=== PATIENT | female | born 1935 | race Caucasian/White ===

== ENCOUNTER 2021-08-22 09:21 | Observation (INO) ==
--- NOTE | 2021-08-03 09:43 | History & Physical Report ---
Date of Service August 03, 2021 date of surgery: 08/22/21 Procedure: Right Total Knee Arthroplasty Surgeon: Zac Mendes Assessment & Plan (1) Arthritis of right knee: Plan: Risks and benefits of procedure discussed in detail today, patient would like to proceed with a Right total knee replacement at [facility] as scheduled. will obtain medical clearance prior to surgery as well as obtain PATs at [facility]. Will place on ASA 81mg po bid x 1 month post op, f/u 2 weeks post op for routine post-operative care and x-ray, sooner if having any problems. patient will need rehab stay vs SNF after her surgery as discussed, will discuss with CM. At this point in time, has failed conservative measures and would like to proceed with surgical intervention. Her xrays show worsening DJD of her right knee, she has failed cortisone and visco injections. She will need patient matched TKA due to troch nail in her right femur. She underwent troch nail fixation in [facility], was d/c to [facility] in [place] for her therapy, recommend she continue PT of her hip and knee prior to her TKA The risks and benefits have been discussed including, but not limited to, risk of infection, nerve injury, stiffness, loss of motion, failure to improve, etc. Reasonable outcomes and options of treatment were discussed. An explanation of appropriate alternatives to the procedure that may be advantageous were discussed and their risks and benefits, as well as the risks and benefits of not proceeding with treatment. I offered to answer any additional inquiries concerning the treatment involved. All the patient's questions were answered. The patient is agreeable, understanding of the treatment plan and alternatives, and wishes to proceed with the treatment plan. History of Present Illness Chief Complaint: right knee pain Primary Care Provider: Akosua Blum Amy is an 85 year old female who complains of right knee pain, presents for pre-op evaluation prior to a right total knee replacement. she complains of pain, decreased range of motion, instability and stiffness in her right knee. Currently the patient states that the symptoms are moderate-severe and rated at 6/10. her pain is described as aching, sharp and throbbing. The symptoms are aggravated by ascending stairs, daily activities, first steps while awake walking. Prior NSAIDs include Mobic and IBU. she has been treated with previous cortisone and visco injections in the past without much relief. Allergies Allergy/AdvReac Type Severity Reaction Status Date / Time No Known Allergies Allergy Verified 02/19/21 08:02 Home Medications Medication Instructions Recorded Confirmed Type acetaminophen 325 mg tablet 650 mg PO BID 02/19/21 02/19/21 History (Tylenol) aspirin 325 mg tablet 325 mg PO QAM 02/19/21 02/19/21 History ferrous sulfate 325 mg (65 mg 325 mg PO QAM 02/19/21 02/19/21 History iron) tablet (iron) folic acid 1 mg tablet 1 mg PO QAM 02/19/21 02/19/21 History glucosamine sulfate 500 mg tablet 500 mg PO BID 02/19/21 02/19/21 History (Glucosamine) insulin glargine 100 unit/mL (3 15 unit SUBCUT BID 02/19/21 02/19/21 History mL) subcutaneous pen (Basaglar KwikPen U-100 Insulin) levothyroxine 100 mcg tablet 100 mcg PO QAM 02/19/21 02/19/21 History meloxicam 15 mg tablet 15 mg PO QAM 02/19/21 02/19/21 History methotrexate sodium 2.5 mg tablet 15 mg PO WK 02/19/21 02/19/21 History multivitamin 1 tab PO QAM 02/19/21 02/19/21 History omega-3 fatty acids-fish oil 684 1 cap PO QAM 02/19/21 02/19/21 History mg-1,200 mg capsule,delayed release propranolol 20 mg tablet 20 mg PO BID 02/19/21 02/19/21 History ramipril 10 mg tablet 10 mg PO QAM 02/19/21 02/19/21 History semaglutide (Ozempic) mg SUBCUT WK 02/19/21 History simvastatin 40 mg tablet 40 mg PO HS 02/19/21 02/19/21 History Past Med/Surg History Medical History Diabetes mellitus, type 2 Well controlled, stable Hyperlipidemia Hypertension Well controlled, stable Hypothyroidism Iron deficiency Osteoarthritis Rheumatoid arthritis knees Surgical History History of bilateral tubal ligation History of cardiac cath several yrs ago> no stents History of carpal tunnel release right History of cataract surgery bilat History of section x3 History of colonoscopy History of hip surgery from fracture > right with pin History of tonsillectomy History of tooth extraction with implants S/P trigger finger release bilat Family History Grandmother (Paternal) Diabetes Father Diabetes Brother Throat cancer Social History Smoking Status: Never smoker Second Hand Exposure: No; Hx Alcohol Use: No Hx Substance Use: No Preferred Language: Iranian Communication Ability: Effective Fitness Professional Required: No Beliefs That Will Affect Care: None Current Living Situation: Personal Care Facility Current Living Situation Comment: [facility] in [place] > apartments Feels Safe at Home: Yes Assistive Devices: Cane and Glasses Review of Systems Review of Systems: All systems reviewed & are unremarkable except as noted in HPI & below Constitutional: no fever, no chills and no sweats Respiratory: no cough and no dyspnea Cardiovascular: no chest pain, no dyspnea and no orthopnea Gastrointestinal: no abdominal pain, no nausea and no vomiting Musculoskeletal: as per Subjective / HPI Physical Exam Physical Exam: HT: 5ft 3in WT: 78.9kg Constitutional: WD/WN, vitals as above no acute distress Respiratory: normal respiratory effort, lungs clear to auscultation no respiratory distress, no labored breathing and does not use accessory muscles Cardiovascular: RRR, no murmur, no edema Gastrointestinal (Abdomen): normal bowel sounds, soft, nontender, no hepatosplenomegaly Musculoskeletal: Knee: + knee abnormal to inspection (RIGHT KNEE- ), + effusion (+1 effusion), + surgical incision (well healed portals), + limited ROM of knee (ROM 0/3/110), + knee ROM with crepitation, + joint line tenderness (medial joint line) and + Rosalind's sign positive; no deformity, no skin erythema, no ecchymosis, no valgus laxity, no varus laxity, anterior drawer test negative, Mandi's sign negative and pivot shift test negative Results & Data Results & Data ([facility]) Diagnostic Findings Right Knee X-ray: Right knee series showing advanced degenerative changes to the right knee, narrowing of the medial compartment and patello-femoral joint with patellar spurring noted, findings showing joint space narrowing of the medial compartment and patello-femoral joint, osteophyte formation and subchondral sclerosis noted. overall varus alignment with slight tibial subluxation. no acute bony pathology noted.
--- NOTE | 2021-08-17 14:55 | Anesthesiology Consultation ---
Date of Service August 17, 2021 Assessment & Plan (1) Encounter for pre-operative examination: - awaiting updated pre-op labs. - check BSG am DOS. - medical clearance 08/08/2021: "...feeling well at this time...appetite is good...right knee surgery on 08/22/21...chronic conditions which are generally controlled...preoperative lab work recently. This was reviewed and returned with expected results. EKG and CXR and supporting MRI were done in February...as long as surgeon and anesthesiologist are in agreement, patient will be cleared for total right knee arthroplasty..." Outpatient joint assessment: due to age and co-morbidities, patient is NOT acceptable candidate for outpatient joint program. - COVID screening: Per risk assessment analyst on 08/17/2021: Travel screen negative, no known COVID-19 positive contacts or current COVID-19 related symptoms in past 2 weeks. Patient vaccinated. Surgeon arranging preop COVID testing, scheduled 08/20/2021. Awaiting results. Chart Review Chart Review: Pending: Refer to Additional Notes / Consult section and Patient NOT seen in Pre Admission Testing History Surgery Operation Date: 08/22/21 09:20 Proposed Procedures p Right Total Knee Arthroplasty - Zac Mendes DO Surgery re-scheduled since 02/26/2021 anesthesia review. Height/Weight Height: 5 ft 3 in Weight: 78.471 kg Allergies Allergy/AdvReac Type Severity Reaction Status Date / Time No Known Allergies Allergy Verified 08/17/21 08:36 Medications Home Medications Medication Instructions Recorded Confirmed Last Taken acetaminophen 325 mg tablet 650 mg PO BID 02/19/21 08/17/21 Unknown (Tylenol) aspirin 325 mg tablet 325 mg PO QAM 02/19/21 08/17/21 Unknown ferrous sulfate 325 mg (65 mg 325 mg PO QAM 02/19/21 08/17/21 Unknown iron) tablet (iron) folic acid 1 mg tablet 1 mg PO QAM 02/19/21 08/17/21 Unknown glucosamine sulfate 500 mg tablet 500 mg PO BID 02/19/21 08/17/21 Unknown (Glucosamine) levothyroxine 100 mcg tablet 100 mcg PO QAM 02/19/21 08/17/21 Unknown meloxicam 15 mg tablet 15 mg PO QAM 02/19/21 08/17/21 Unknown methotrexate sodium 2.5 mg tablet 15 mg PO WK 02/19/21 08/17/21 Unknown multivitamin 1 tab PO QAM 02/19/21 08/17/21 Unknown omega-3 fatty acids-fish oil 684 1 cap PO QAM 02/19/21 08/17/21 Unknown mg-1,200 mg capsule,delayed release propranolol 20 mg tablet 20 mg PO BID 02/19/21 08/17/21 Unknown ramipril 10 mg tablet 10 mg PO BID 02/19/21 08/17/21 Unknown semaglutide (Ozempic) 0.5 mg SUBCUT WK 02/19/21 08/17/21 Unknown simvastatin 40 mg tablet 40 mg PO HS 02/19/21 08/17/21 Unknown insulin glargine 100 unit/mL (3 15 unit SUBCUT BID 08/17/21 08/17/21 Unknown mL) subcutaneous pen (Lantus Solostar U-100 Insulin) Past Medical History Medical History Diabetes mellitus, type 2 Well controlled, stable Hyperlipidemia Hypertension Well controlled, stable Hypothyroidism Iron deficiency Osteoarthritis Rheumatoid arthritis knees Past Family History Family History Grandmother (Paternal) Diabetes Father Diabetes Brother Throat cancer Past Surgical History Surgical History History of bilateral tubal ligation History of cardiac cath several yrs ago> no stents History of carpal tunnel release right History of cataract surgery bilat History of section x3 History of colonoscopy History of hip surgery from fracture > right FEMUR with ISMAEL-11/2020 History of tonsillectomy History of tooth extraction with implants S/P trigger finger release bilat Social History Smoking Status: Never smoker Do You Dip or Chew Tobacco: No Hx Alcohol Use: No Hx Substance Use: No substance use type: does not use Testing Electrocardiogram Date: 02/26/21 Normal sinus rhythm, rate [address] abnormality Non-specific RV conduction delay Abnormal ECG No previous ECGs available Confirmed by Akshat Edwards. Chest X-Ray Date: 02/26/21 FINDINGS: Moderate enlargement of the cardiac silhouette with mitral annular calcifications. Calcified plaque of the thoracic aorta. No pneumothorax, pleural effusion, airspace consolidation or overt pulmonary edema. Degenerative changes of the shoulders and spine with mild sigmoidal thoracolumbar scoliosis. Other Testing C spine x-ray FINDINGS: No fractures or subluxations are identified. Degenerative changes including disc space narrowing, endplate sclerosis, and osteophyte formation are most prominent at C5-C6. The alignment is anatomic Prevertebral soft tissues are within normal limits. IMPRESSION: No evidence for acute fracture or subluxation.
[~2021-08-22 09:21] MED LIST: ACETAMINOPHEN 500 MG TAB PO SCH; BUPIVACAINE 0.25% 30 ML VIAL ONE; BUPIVACAINE 0.5 % 5 MG/1 ML PF 10ML VIAL ONE; CeleBREX 200 MG CAP PO SCH; DEXAMETHASONE SOD INJ 4 MG/ML VIAL ONE; EPINEPHrine INJ 1 MG/ML AMP ONE; FAMOTIDINE 20 MG TAB PO SCH; GABAPENTIN 300 MG CAP PO SCH; LR 500ML BOLUS, THEN 15ML/HR IV SCH; METOCLOPRAMIDE HCL 10 MG TABLET PO SCH; ROPIVACAINE 0.5% HCL/PF 150 MG, BUPIVACAINE 0.75% MPF 20 ML, EPINEPHrine 30MG/30ML (OR ... INSTIL SCH; TRANEXAMIC ACID 1,000 MG **IV Intra-op IV SCH; TRANEXAMIC ACID 1,000 MG **IV Pre-op IV SCH; ceFAZolin 2000MG 2,000 MG/15 ML SYR IV SCH; dexAMETHasone 4 MG TAB PO SCH; oxyCODONE HCL 10 MG TABCR (OxyCONTIN) PO SCH
[2021-08-22] MEDS ORDERED: MIDAZOLAM HCL 1 MG/ML 2ML VIAL ONE (10:04)
[2021-08-22] MEDS ORDERED: DEXTROSE 5% 500 ML IV SCH (10:30)
--- NOTE | 2021-08-22 10:51 | History & Physical Bridge Note ---
Date of Service August 22, 2021 History & Physical Bridge Note I have examined the patient, reviewed the History & Physical and in the interval since the performance of the History & Physical I have noted the following changes of clinical significance: no changes noted
[2021-08-22] MEDS ORDERED: PROMETHAZINE HCL 6.25 MG in SODIUM CHLORIDE 0.9% 50 ML IV PRN (10:55)
[2021-08-22] MEDS ORDERED: fentaNYL citrate 100 MCG/2 ML VIAL IV PRN (10:55)
[2021-08-22] MEDS ORDERED: ONDANSETRON INJ 2 MG/ML 2 ML VIAL IV PRN ×2 (10:55→15:59)
[2021-08-22] MEDS ORDERED: ATROPINE SULFATE 0.1 MG/ML 10ML SYR IV PRN (10:55)
[2021-08-22] MEDS ORDERED: ePHEDrine sulfate 50 MG/ML AMP IV PRN (10:55)
[2021-08-22] MEDS ORDERED: ORTHO JOINT ANESTHETIC ONE (11:24)
[2021-08-22] MEDS ORDERED: PROPOFOL IV EMULSION 10 MG/ML 20 ML VIAL IV ONE (12:32)
[2021-08-22] MEDS ORDERED: LIDOCAINE 2% 2 ML VIAL/AMP(20MG/ML) INFIL ONE (12:32)
[2021-08-22] MEDS ORDERED: ePHEDrine sulfate 50 MG/ML SYR ONE (13:02)
--- NOTE | 2021-08-22 13:25 | Operative Report ---
Post Operative Report Pre & Post Diagnosis Operation Date: 08/22/21 11:40 Pre-Op Diagnosis: Arthritis of right knee Post-Op Diagnosis: Arthritis of right knee I identified the patient and participated in the time-out.: Yes Procedure Operation Date: 08/22/21 11:40 Actual Procedures p Right Total Knee Arthroplasty(Right) utilizing [employer] persona 9 narrow posterior stabilized tibia D with a 14 x 30 stem polytwelve posterior constrained patella 31 oval Zac Mendes DO Surgeon Zac Mendes DO Jail Officer Fermin [place] Estimated Blood Loss 10 Findings Consistent with Post-Op Diagnosis Patient presents with ongoing severe DJD varus alignment 10 degree flexion contracture eburnated [id number] marginal osteophyte subchondral sclerosis with cystic changes with moderate to large effusion Specimens Bone and cartilage Drains Medium bore Hemovac Anesthesia Type MAC Spinal Regional Complications none Disposition Accompanied Patient To Recovery: No Disposition: Recovery Room Indications Patient presents with DJD as noted above failed attempted conservative management daily corticosteroid injection Visco supplementation relative rest activity modification the above intraoperative findings were noted Description of Procedure After proper prepping and draping of the Right lower extremity anterior midline incision was made over the region of the extensor extensor mechanism after meticulous hemostasis was obtained and maintained in subcutaneous tissues a medial parapatellar incision was made The patella was subluxed lateralward the medial lateral gutter were cleaned from any hypertrophic synovitis and scar tissue of the distal femoral block was placed and the distal femoral osteotomy cut was made subsequently the chamfers anterior and posterior osteotomy cuts were made utilizing the 4-in-1 block the tibia was subsequently subluxed anteriorward medial and ateral meniscal remnants were excised in their entirety remnants of the anterior and posterior cruciate ligaments were excised in their entirety excellent exposure of the proximal tibia was obtained the tibial osteotomy guide was placed on the proximal tibial osteotomy cut was made once again the knee was irrigated with copious amounts of sterile saline solution the patella was subsequently everted lateralward thickened scar tissue around the patella was removed the patella was subsequently cut utilizing a freehand technique and was drilled prepared for final preparation and placement of patella socially flexion-extension gaps were checked and the equal and symmetric trials were placed to the appropriate femoral and tibial trials with poly-spacer being placed for equal flexion and extension gaps and full range of motion including extension to 0 and flexion to 140 the trial components after having been taken to recovery range of motion was subsequently removed meticulous hemostasis was obtained and maintained subsequently a knee block injection of joint cocktail including ropivacaine 0.5% 150 mg. Bupivacaine 0.5% epinephrine 1-200,030 mL's toradol 30 mg dexamethasone 4 mg ketamine 10 mg clonidine 100 micrograms normal saline solution 30 mg was infiltrated into the soft tissues of the posterior knee medial lateral gutters and periosteal synovium special attention was paid to protect neurovascular structures at all times subsequently trial components having been removed the knee was irrigated with sterile saline solution. debris was removed the proximal tibia was subsequently prepared and was made ready for the placement of the tibial component tibial component was also cemented and tamped into position the femoral component was subsequently placed and cemented in the position the patellar component was subsequently cemented in position because hemostasis once again obtained and maintained wound having been thoroughly irrigated with debridement and debridement lavage was performed as well as a medial parapatellar incision closed with #1 Vicryl in interrupted fashion subcutaneous was closed with #2 Vicryl skin was closed with skin clips. PA-C was necessary for prepping and drapping as well as wound closure of deep fascia Sub cutaneous tissue and skin and was necessary for the case. A sterile compressive dressing was placed patient was taken to recovery in stable condition of report dictated by Vaughn I attest to the content of the Intraoperative Record and any orders documented therein. Any exceptions are noted below.Due to the complex nature of the procedure, the entire surgery was performed with the operational assistance of MARISA Dias The university administrative assistant, under direct supervision, was involved in the actual performance of all aspects of the surgical procedure including hemostasis, tissue retraction and incision, instrument management, patient positioning, and wound closure. I attest to the content of the Intraoperative Record and any orders documented therein. Any exceptions are noted below.
--- NOTE | 2021-08-22 14:28 | Anesthesiology Progress Note ---
Date of Service August 22, 2021 Anesthesia Post Procedure Vital Signs Vital Signs: Temp Pulse Pulse Resp BP BP Pulse Ox 08/22/21 14:20 70 16 130/62 98 08/22/21 14:10 66 12 137/62 100 08/22/21 14:00 68 14 114/76 100 08/22/21 13:51 37.1 C 66 14 103/60 100 08/22/21 10:07 36.6 C 62 20 184/87 H 100 Transfer of Care Handoff Completed per policy Notes Mental Status: alert / awake / arousable Patient Amnestic to Procedure: Yes Nausea / Vomiting: adequately controlled Pain: adequately controlled Airway Patency, RR, SpO2: stable & adequate BP & HR: stable & adequate Hydration State: stable & adequate Neuraxial Anesthesia: was administered and sensory block is resolving Anesthetic Complications: no major complications apparent and Pt Satisfied with anesthetic care
--- NOTE | 2021-08-22 14:33 | XRay Report ---
RIGHT KNEE 2 VIEWS History: Right total knee arthroplasty. Degenerative arthritis. Postop. FINDINGS: The patient is status post a right total knee arthroplasty. The hardware is intact. No frac ture or dislocation. Surgical drains are in place. IMPRESSION: Right total knee arthroplasty. No evidence for hardware complication. ACT 112: Negative or not required by law. Electronically signed by: Davy Higuera M.D. 08/22/2021 2:30 PM
[2021-08-22] MEDS ORDERED: HYDROmorphone INJ 1 MG/ML SYRINGE IV PRN (15:59)
[2021-08-22] MEDS ORDERED: bisacodyL 10 MG SUPP PR PRN (15:59)
[2021-08-22] MEDS ORDERED: METOCLOPRAMIDE HCL INJ 5 MG/ML 2 ML VIAL IV PRN (15:59)
[2021-08-22] MEDS ORDERED: PHARMACY GLYCEMIC MGMT CONSULT PRN (15:59)
[2021-08-22] MEDS ORDERED: NALOXONE HCL 0.4 MG/1 ML VIAL/CARP IV PRN (15:59)
[2021-08-22] MEDS ORDERED: oxyCODONE HCL IR 5 MG TAB (IMMEDIATE RELEASE) PO PRN (15:59)
[2021-08-22] MEDS ORDERED: MAGNESIUM HYDROXIDE SUSP 30 ML UDC PO PRN (15:59)
[2021-08-22] MEDS ORDERED: diphenhydrAMINE Capsule 25 MG CAP PO PRN (15:59)
[2021-08-22] MEDS: SODIUM CHLORIDE 0.9% 1000ML 1,000 ML IV SCH (16:20)
[2021-08-22] MEDS: ACETAMINOPHEN 500 MG TAB PO SCH (17:03)
[2021-08-22] MEDS: INSULIN ASPART PER UNIT SC SCH ×2 (17:42→21:25)
[2021-08-22] MEDS: ceFAZolin 2000MG 2,000 MG/15 ML SYR IV SCH (19:51)
[2021-08-22] MEDS: PROPRANOLOL HCL 20 MG TAB PO SCH (19:51)
[2021-08-22] MEDS: DOCUSATE SODIUM 100 MG CAP PO SCH (19:51)
[2021-08-22] MEDS: ASPIRIN 81 MG ECTAB PO SCH (20:10)
[2021-08-22] MEDS ORDERED: INSULIN GLARGINE SOLOSTAR 100 UNITS/ML 3 ML PEN SQ ONE (20:15)
[2021-08-22] MEDS ORDERED: SENNA 8.6 MG TAB PO SCH (21:00)
[2021-08-22] MEDS ORDERED: SIMVASTATIN 40 MG TAB PO SCH (21:00)
[2021-08-22] MEDS ORDERED: INSULIN GLARGINE SOLOSTAR 100 UNITS/ML 3 ML PEN SQ SCH (21:00)
[2021-08-23] MEDS: INSULIN ASPART PER UNIT SC SCH ×4 (00:09→12:30)
[2021-08-23] MEDS: ACETAMINOPHEN 500 MG TAB PO SCH ×2 (00:11→09:04)
[2021-08-23] MEDS: SODIUM CHLORIDE 0.9% 1000ML 1,000 ML IV SCH (03:00)
[2021-08-23] MEDS: ceFAZolin 2000MG 2,000 MG/15 ML SYR IV SCH (03:33)
[2021-08-23 06:15] LABS: Calcium 8.6 mg/dl (8.5-10.1); Creatinine Clr Calc Pharmacy 52.8 ml/min; Est GFR (Non-African American) 68.2 ml/min; Hematocrit (blood only) 31.1 % (37-47); Hemoglobin 10.1 g/dL (12.0-16.0); Mean Corpuscular Hemoglobin 27.4 pg (25-34); Mean Corpuscular Hgb Conc 32.5 g/dL (32-36); Mean Corpuscular Volume 84.5 fL (80-100); Platelet Count 264 K/uL (130-400); Potassium 4.2 mmol/L (3.5-5.1); RDW Coefficient of Variation 13.5 % (11.5-14.5); RDW Standard Deviation 41.2 fL (36.4-46.3); Red Blood Count 3.68 M/uL (4.2-5.4)
[2021-08-23] MEDS ORDERED: LEVOTHYROXINE SODIUM 100 MCG TABLET PO SCH (06:30)
--- NOTE | 2021-08-23 06:37 | Hospitalist Consultation ---
Date of Consultation August 23, 2021 History of Present Illness Attending Physician: Zac Mendes DO Allergies Allergy/AdvReac Type Severity Reaction Status Date / Time No Known Allergies Allergy Verified 08/22/21 10:12 Home Medications Medication Instructions Recorded Confirmed Type acetaminophen 325 mg tablet 650 mg PO BID 02/19/21 08/22/21 History (Tylenol) aspirin 325 mg tablet 325 mg PO QAM 02/19/21 08/22/21 History ferrous sulfate 325 mg (65 mg 325 mg PO QAM 02/19/21 08/22/21 History iron) tablet (iron) folic acid 1 mg tablet 1 mg PO QAM 02/19/21 08/22/21 History glucosamine sulfate 500 mg tablet 500 mg PO BID 02/19/21 08/22/21 History (Glucosamine) levothyroxine 100 mcg tablet 100 mcg PO QAM 02/19/21 08/22/21 History meloxicam 15 mg tablet 15 mg PO QAM 02/19/21 08/22/21 History methotrexate sodium 2.5 mg tablet 15 mg PO WK 02/19/21 08/22/21 History multivitamin 1 tab PO QAM 02/19/21 08/22/21 History omega-3 fatty acids-fish oil 684 1 cap PO QAM 02/19/21 08/22/21 History mg-1,200 mg capsule,delayed release propranolol 20 mg tablet 20 mg PO BID 02/19/21 08/22/21 History ramipril 10 mg tablet 10 mg PO BID 02/19/21 08/22/21 History semaglutide (Ozempic) 0.5 mg SUBCUT WK 02/19/21 08/22/21 History simvastatin 40 mg tablet 40 mg PO HS 02/19/21 08/22/21 History insulin glargine 100 unit/mL (3 15 unit SUBCUT BID 08/17/21 08/22/21 History mL) subcutaneous pen (Lantus Solostar U-100 Insulin) Patient History Medical History Diabetes mellitus, type 2 Well controlled, stable Hyperlipidemia Hypertension Well controlled, stable Hypothyroidism Iron deficiency Osteoarthritis Rheumatoid arthritis knees Surgical History History of bilateral tubal ligation History of cardiac cath several yrs ago> no stents History of carpal tunnel release right History of cataract surgery bilat History of section x3 History of colonoscopy History of hip surgery from fracture > right FEMUR with ISMAEL-11/2020 History of tonsillectomy History of tooth extraction with implants S/P trigger finger release bilat Family History Grandmother (Paternal) Diabetes Father Diabetes Brother Throat cancer Social History Smoking Status: Never smoker Second Hand Exposure: No; Do You Dip or Chew Tobacco: No; Hx Alcohol Use: No Hx Substance Use: No Preferred Language: Andorran Communication Ability: Effective Senior Application Software Engineer Required: No Beliefs That Will Affect Care: None Current Living Situation: Alone Current Living Situation Comment: [facility]arate in [place] > apartments current occupational status: retired Other Information That Helps Us Care for You: No Feels Safe at Home: Yes Safety Concerns: Feels Safe At This Time Assistive Devices: Walker Assistive Devices Comment: IMPLANTS Results & Data Results & Data ([facility]) Vital Signs (Past 12 Hours) Vital Signs Temp Pulse Resp BP Pulse Ox 08/23/21 03:32 36.5 C 66 14 157/72 H 96 08/23/21 00:04 36.4 C L 71 17 144/72 H 95 08/22/21 19:10 36.5 C 80 17 144/67 H 98 PG Care Time/CCT Total # of Minutes Spent Total Time Spent with Patient: Total time spent is greater than 50% in coordination of care (as documented) at patient's floor/unit and/or counseling patient: Coding
[2021-08-23] MEDS: ASPIRIN 81 MG ECTAB PO SCH (08:32)
[2021-08-23] MEDS ORDERED: MULTIVITAMIN TAB PO SCH (09:00)
[2021-08-23] MEDS ORDERED: INSULIN GLARGINE SOLOSTAR 100 UNITS/ML 3 ML PEN SQ SCH ×2 (09:00→21:00)
[2021-08-23] MEDS ORDERED: FOLIC ACID 1 MG TAB PO SCH (09:00)
[2021-08-23] MEDS ORDERED: FERROUS SULFATE 325 MG TAB PO SCH (09:00)
[2021-08-23] MEDS ORDERED: ENALAPRIL MALEATE 10 MG TAB PO SCH (09:00)
[2021-08-23] MEDS: DOCUSATE SODIUM 100 MG CAP PO SCH (09:04)
[2021-08-23] MEDS: PROPRANOLOL HCL 20 MG TAB PO SCH (09:04)
--- NOTE | 2021-08-23 09:21 | Orthopedic Progress Note ---
Date of Service August 23, 2021 Assessment & Plan (1) Arthritis of right knee: Plan: POD 1 PT/OT protocols. Weightbearing as tolerated. DVT prophylaxis-ASA p.o. twice daily, SCDs, HOLGER montilla. Pain management as written. DC planning-patient is planning to return to [facility]. Admission and Anticipated Discharge Date Admission Date: August 22, 2021 Subjective POD 1 Patient is sitting up in bed awake and alert. No complaints. Pain is controlled. Denies shortness of breath, chest pain, lightheadedness. Physical Exam Physical Exam: Dressings are clean, dry, and intact. Calves are soft and nontender. Neurovascular is intact. Toes are mobile. Hemovac drainage was 175 mL this morning. Plan to recheck at 11 AM. Results & Data ([facility]) Vital Signs (Past 12 Hours) Vital Signs Temp Pulse Resp BP Pulse Ox 08/23/21 07:08 36.6 C 68 16 155/72 H 97 08/23/21 03:32 36.5 C 66 14 157/72 H 96 08/23/21 00:04 36.4 C L 71 17 144/72 H 95 Laboratory Results Laboratory Results WBC 12.70 K/uL (4.8-10.8) H 08/23/21 05:30 RBC 3.68 M/uL (4.2-5.4) L 08/23/21 05:30 Hgb 10.1 g/dL (12.0-16.0) L 08/23/21 05:30 Hct 31.1 % (37-47) L 08/23/21 05:30 MCV 84.5 fL (80-100) 08/23/21 05:30 MCH 27.4 pg (25-34) 08/23/21 05:30 MCHC 32.5 g/dL (32-36) 08/23/21 05:30 RDW Std Deviation 41.2 fL (36.4-46.3) 08/23/21 05:30 RDW Coeff of Pari 13.5 % (11.5-14.5) 08/23/21 05:30 Plt Count 264 K/uL (130-400) 08/23/21 05:30 MPV 10.0 fL (7.4-10.4) 08/23/21 05:30 Sodium 131 mmol/L (136-145) L 08/23/21 05:30 Potassium 4.2 mmol/L (3.5-5.1) 08/23/21 05:30 Chloride 101 mmol/L (98-107) 08/23/21 05:30 Carbon Dioxide 25 mmol/L (21-32) 08/23/21 05:30 Anion Gap 5 (3-11) 08/23/21 05:30 BUN 20 mg/dl (6-23) 08/23/21 05:30 Creatinine 0.80 mg/dl (0.6-1.2) 08/23/21 05:30 Est Cr Clr Drug Dosing 52.8 ml/min 08/23/21 05:30 Est GFR ( Amer) 79.0 ml/min 08/23/21 05:30 Est GFR (Non-Af Amer) 68.2 ml/min 08/23/21 05:30 BUN/Creatinine Ratio 25.0 (10-20) H 08/23/21 05:30 Glucose 133 mg/dl (70-99(Fasting)) H 08/23/21 05:30 POC Glucose 133 mg/dl (70-99) H 08/23/21 08:01 Calcium 8.6 mg/dl (8.5-10.1) 08/23/21 05:30 SARS-CoV-2, RNA, NAAT NEGATIVE (NEGATIVE) 08/22/21 Unknown Blood Type O Positive 08/22/21 10:13 Antibody Screen NEGATIVE 08/22/21 10:13 Impressions Knee X-Ray 08/22/21 13:57 RIGHT KNEE 2 VIEWS History: Right total knee arthroplasty. Degenerative arthritis. Postop. FINDINGS: The patient is status post a right total knee arthroplasty. The hardware is intact. No fracture or dislocation. Surgical drains are in place. IMPRESSION: Right total knee arthroplasty. No evidence for hardware complication. ACT 112: Negative or not required by law. Electronically signed by: Davy Higuera M.D. 08/22/2021 2:30 PM
--- NOTE | 2021-08-23 13:20 | Pharmacy Report ---
Pharmacy Glycemic Short Note 2 - Date of Service August 23, 2021 - Glycemic Short BSG Results (Last 24 hours): 08/22/21 08/22/21 08/22/21 13:55 17:31 20:54 Glucose POC Glucose 85 163 H 363 H* 08/22/21 08/23/21 08/23/21 20:55 00:00 03:37 Glucose POC Glucose 350 H* 262 H 169 H 08/23/21 08/23/21 08/23/21 05:30 08:01 12:00 Glucose 133 H POC Glucose 133 H 220 H OUTPATIENT ANTIDIABETIC REGIMEN: * Lantus 15 units BID * Ozempic ASSESSMENT: * Ms Bernstein is an 85 y/o F with a PMH of T2DM on insulin who presents for knee replacement. * Patient received D5 prior to OR due to hypoglycemia. * Patient received 8 mg of PO dexamethasone prior to surgery and 4 mg of IV dexamethasone during surgery. * BSG afterwards was 85 mg/dL. * POC BSG was 363 after dinner due to no carbohydrate coverage. * Patient received 20 units of Lantus + weight-based stress of 3 Novolog. * Received 9 extra units of insulin overnight for BSGs of 262-169 mg/dL. Fasting today was 133 mg/dL. * Started with Lantus 15 units this morning (patient's home dose due to steroids) then will start a 10% reduced dose of 12 units BID since patient inpatient. * Novolog weight-based stress of 3 for now. PLAN FOR INPATIENT GLYCEMIC CONTROL: * Basal insulin * Lantus 15 units SQ x 1 then 12 units SQ BID * Bolus insulin * NovoLog per scale ACHS or Q6hrs while NPO * Goal Range: Low 110 mg/dL - High 140 mg/dL * Correction Factor: 20 mg/dL/unit * Nutritional / Prandial insulin per carb ratio of 1 unit per 6 grams CHO consumed
--- NOTE | 2021-08-24 12:21 | Discharge Summary ---
Date of Service date of surgery: 08/22/21 date of discharge: 08/23/21 Admission HPI Per Admitting Provider Amy is an 85 year old female who complains of right knee pain, presents for pre-op evaluation prior to a right total knee replacement. she complains of pain, decreased range of motion, instability and stiffness in her right knee. Currently the patient states that the symptoms are moderate-severe and rated at 6/10. her pain is described as aching, sharp and throbbing. The symptoms are aggravated by ascending stairs, daily activities, first steps while awake walking. Prior NSAIDs include Mobic and IBU. she has been treated with previous cortisone and visco injections in the past without much relief. Principal Diagnosis right knee arthritis Discharge Exam Musculoskeletal NVDI, calf SNT, negative will sign. DP palpable, able to wiggle toes/ankle movement without difficulty. dressing clean dry and intact. expected post- operative bruising noted. Discharge Data Allergies Allergy/AdvReac Type Severity Reaction Status Date / Time No Known Allergies Allergy Verified 08/22/21 10:12 Procedures Performed Operation Date: 08/22/21 11:40 Actual Procedures p Right Total Knee Arthroplasty(Right) - Zac Mendes DO Ordered Studies 08/22/21 05:00 US - OR guided needle placemen Routine Hospital Course (1) Arthritis of right knee: POD 1 PT/OT protocols. Weightbearing as tolerated. DVT prophylaxis-ASA p.o. twice daily, SCDs, HOLGER montilla. Pain management as written. DC planning-patient is planning to return to [facility]. Total Time Total Time Spent Total Time Spent (In Minutes): 20 Discharge Plan Discharge Items Patient Disposition: Home - Self-Care Reason For Visit: Right Knee Osteoarthritis Discharge Diagnosis: Right total knee replacement Activity: Per Instructions section Lifting: Wait until after follow-up appointment Weightbearing Comment: WBAT with walker Non-emergency contact: Surgeon Call non-emergency contact if: you have any medication questions, your pain is not controlled, your pain is worsening, your temperature is above 101, your wound has increased redness, your wound has increased drainage and your wound pain has increased Follow-up/Referrals: Akosua Blum D.O. [Primary Care Provider] - Diet: Regular Addtl Attending Provider Instructions: ACTIVITY RECOMMENDATIONS: SELF CARE INSTRUCTIONS AFTER TOTAL KNEE REPLACEMENT A. You may need to continue a physical therapy program after discharge from the hospital. There are several options available to you. Your doctor will assist you in selecting the best one for you. 1. An out-patient facility 2 to 3 times a week for therapy or home therapy. 2. Continue working on all exercises taught to you in the hospital. Your goals should be to increase bending of your knee to 90 degrees and beyond and to fully straighten your knee. B. You may progress at your own pace from walking with a walker or crutches to a cane; then to no assistive devices. C. Make walking a part of your daily routine. Be up as much as comfortable with rest periods throughout the day. Rest with leg elevation is very important. Use the ice wrap frequently for the first 3-4 weeks. D. There are no restrictions on activities. You may ride in a car, shop, participate in automotive general manager and all social activities. E. Wear the long elastic stockings (HOLGER hose) 20 hours a day for 2 weeks after surgery. They can be removed several times a day for laundering and for a bath. F. You may shower, no tub baths until cleared by your doctor. SPECIAL CARE INSTRUCTIONS: VERY IMPORTANT TO READ AND REVIEW A. There are a few signs you need to watch for after you are home. Call [facility] [place] if you notice any of the followin. Increased severe knee pain. Some pain is expected especially when you exercise. 2. Increased swelling in your leg or knee; pain or swelling of the calf muscle in either lower leg. 3. Any fluid drainage from the incision. 4. Shortness of breath or chest pain. B. Please call [facility] [place] [facility] at if you have any concerns or questions about your operation or recovery. The doctor or his nurse will return your call promptly. C. You must take antibiotics before dental work, bladder, bowel or other surgery. Your doctor will provide you with a permanent care to carry describing this precaution. IMPORTANT: * REMEMBER TO TAKE ASPIRIN, 81 MG, TWICE DAILY FOR 4 WEEKS UNLESS OTHERWISE DIRECTED. THIS IS YOUR BLOOD THINNER. * HIGH RISK PATIENTS MAY BE PRESCRIBED A STRONGER BLOOD THINNER. THIS WILL BE PROVIDED AT DISCHARGE. * CALL IF INCREASED PAIN, REDNESS, DRAINAGE OR FEVER GREATER THAT 101. * You may restart your Methotrexate 2 weeks post operatively. * WEAR HOLGER HOSE 20 HOURS PER DAY FOR 2 WEEKS. * DERMABOND Prineo- This is a mesh tape dressing that is covered with glue. It should remain in place until the incision is properly healed, usually 10-14 days. This dressing is designed to naturally slough off. You may trim the excess mesh tape as it peels off. Incision may be briefly wet in a shower. Dry immediately by blotting with a clean, dry towel. Do not bath or swim until instructed by your doctor. Do not scratch, rub, or pick at the dressing. Do not apply any topical ointments or lotions until dressing is completely removed and/or instructed by your doctor. There may be a small piece of suture material at one end of your incision. Do not pull or trim this. If it is bothersome or catching on clothing, you may cover it with a band-aid. IF INCISION IS LEAKING THROUGH DRESSING, CALL THE OFFICE . FOLLOW UP VISIT: If appointment is not already scheduled: Please call [facility] [place] to make a follow-up appointment for 2 weeks after your surgery at . Pending Studies at Discharge: No Stand-Alone Forms: My [facility] [employer] Smoking Cessation Medications and DC Order Prescriptions: New aspirin 81 mg Tablet,Delayed Release (Dr/Ec) 81 mg PO BID Qty: 60 RF: 0 acetaminophen [Tylenol Extra Strength] 500 mg Tablet 1,000 mg PO Q8H Qty: 60 RF: 0 oxycodone 5 mg Tablet 5 - 10 mg PO .Q4h-6h MDD 6 PRN (Reason: pain) Qty: 30 RF: 0 Continued Lantus Solostar U-100 Insulin 100 unit/mL (3 mL) Insulin Pen 15 unit SUBCUT BID RF: 0 multivitamin Tablet 1 tab PO QAM RF: 0 glucosamine sulfate [Glucosamine] 500 mg Tablet 500 mg PO BID RF: 0 simvastatin 40 mg Tablet 40 mg PO HS RF: 0 levothyroxine 100 mcg Tablet 100 mcg PO QAM RF: 0 ferrous sulfate [iron] 325 mg (65 mg iron) Tablet 325 mg PO QAM RF: 0 folic acid 1 mg Tablet 1 mg PO QAM RF: 0 propranolol 20 mg Tablet 20 mg PO BID RF: 0 ramipril 10 mg Tablet 10 mg PO BID RF: 0 Ozempic 0.25 mg or 0.5 mg(2 mg/1.5 mL) Pen Injector 0.5 mg SUBCUT WK RF: 0 Discontinued acetaminophen [Tylenol] 325 mg Tablet 650 mg PO BID RF: 0 aspirin 325 mg Tablet 325 mg PO QAM RF: 0 meloxicam 15 mg Tablet 15 mg PO QAM RF: 0 methotrexate sodium 2.5 mg Tablet 15 mg PO WK RF: 0 [place] 3 Fish Oil 684-1,200 mg Capsule,Delayed Release(Dr/Ec) 1 cap PO QAM RF: 0 Discharge Orders: Discharge Order (Routine); Ordered 08/23/21 Ordered By: Lex Parada Admission Data Admit Date/Time: 08/22/21 13:57 Attending Provider: Zac Mendes Admit Provider: Zac Mendes Primary Care Provider: Akosua Blum Other Interventions: Discharge Summary Assessment (RN) Last Done: 08/23/21 13:18
== END 2021-08-23 15:04 | disposition home or self-care (01) ==
LOC: 3E 09:21 → ASU 09:21

== ENCOUNTER 2021-11-07 07:28 | Observation (INO) ==
--- NOTE | 2021-10-18 08:04 | History & Physical Report ---
Date of Service October 18, 2021 date of surgery: 11/07/21 Procedure: Left Total Knee Arthroplasty Surgeon: Zac Mendes Assessment & Plan (1) Arthritis of knee, left: Plan: Risks and benefits of procedure discussed in detail today, patient would like to proceed with a left total knee replacement at [facility] as scheduled. will obtain medical clearance prior to surgery as well as obtain PATs at [facility]. Will place on ASA 81mg po bid x 1 month post op, f/u 2 weeks post op for routine post-operative care and x-ray, sooner if having any problems. patient will need rehab stay vs SNF after her surgery as discussed, will discuss with CM. At this point in time, has failed conservative measures and would like to proceed with surgical intervention. she has failed cortisone and visco injections. The risks and benefits have been discussed including, but not limited to, risk of infection, nerve injury, stiffness, loss of motion, failure to improve, etc. Reasonable outcomes and options of treatment were discussed. An explanation of appropriate alternatives to the procedure that may be advantageous were discussed and their risks and benefits, as well as the risks and benefits of not proceeding with treatment. I offered to answer any additional inquiries concerning the treatment involved. All the patient's questions were answered. The patient is agreeable, understanding of the treatment plan and alternatives, and wishes to proceed with the treatment plan. History of Present Illness Chief Complaint: left knee pain Primary Care Provider: Akosua Rodriguez [place] Amy is an 86 year old female who complains of left knee pain, presents for pre-op evaluation prior to a left total knee replacement. she complains of pain, decreased range of motion and stiffness in her left knee. Currently the patient states that the symptoms are moderate-severe and rated at 7/10. her pain is described as aching, sharp and throbbing and are aggravated by ascending stairs, daily activities, first steps while awake walking. Prior NSAIDs include Mobic and IBU. she has been treated with previous cortisone and visco injections in the past without much relief. Allergies Allergy/AdvReac Type Severity Reaction Status Date / Time No Known Allergies Allergy Verified 08/22/21 10:12 Home Medications Medication Instructions Recorded Confirmed Type ferrous sulfate 325 mg (65 mg 325 mg PO QAM 02/19/21 08/22/21 History iron) tablet (iron) folic acid 1 mg tablet 1 mg PO QAM 02/19/21 08/22/21 History glucosamine sulfate 500 mg tablet 500 mg PO BID 02/19/21 08/22/21 History (Glucosamine) levothyroxine 100 mcg tablet 100 mcg PO QAM 02/19/21 08/22/21 History multivitamin 1 tab PO QAM 02/19/21 08/22/21 History propranolol 20 mg tablet 20 mg PO BID 02/19/21 08/22/21 History ramipril 10 mg tablet 10 mg PO BID 02/19/21 08/22/21 History semaglutide (Ozempic) 0.5 mg SUBCUT WK 02/19/21 08/22/21 History simvastatin 40 mg tablet 40 mg PO HS 02/19/21 08/22/21 History insulin glargine 100 unit/mL (3 15 unit SUBCUT BID 08/17/21 08/22/21 History mL) subcutaneous pen (Lantus Solostar U-100 Insulin) acetaminophen 500 mg tablet 1,000 mg PO Q8H #60 tab 08/23/21 Rx (Tylenol Extra Strength) aspirin 81 mg tablet,delayed 81 mg PO BID #60 tab 08/23/21 Rx release oxycodone 5 mg tablet 5 - 10 mg PO .Q4h-6h PRN #30 tab 08/23/21 Rx MDD 6 Past Med/Surg History Medical History (Updated 10/18/21 @ 08:07 by Fermin Cuellar PA-C) Diabetes mellitus, type 2 Well controlled, stable Hyperlipidemia Hypertension Well controlled, stable Hypothyroidism Iron deficiency Osteoarthritis Rheumatoid arthritis knees Surgical History (Updated 10/18/21 @ 08:07 by Fermin Cuellar PA-C) History of bilateral tubal ligation History of cardiac cath several yrs ago> no stents History of carpal tunnel release right History of cataract surgery bilat History of section x3 History of colonoscopy History of hip surgery from fracture > right FEMUR with ISMAEL-11/2020 History of tonsillectomy History of tooth extraction with implants History of total right knee replacement Right Total Knee Arthroplasty(Right) utilizing [employer] persona 9 narrow posterior stabilized tibia D with a 14 x 30 stem polytwelve posterior con strained patella 31 oval S/P trigger finger release bilat Family History Grandmother (Paternal) Diabetes Father Diabetes Brother Throat cancer Social History Smoking Status: Never smoker Second Hand Exposure: No; Hx Alcohol Use: No Hx Substance Use: No Preferred Language: Malagasy Communication Ability: Effective Hand Bulldozer Required: No Beliefs That Will Affect Care: None Current Living Situation: Alone Current Living Situation Comment: [facility] in [place] > apartments current occupational status: retired Feels Safe at Home: Yes Assistive Devices: Cane and Walker Review of Systems Review of Systems: All systems reviewed & are unremarkable except as noted in HPI & below Constitutional: no fever, no chills and no sweats Respiratory: no cough and no dyspnea Cardiovascular: no chest pain, no dyspnea and no orthopnea Gastrointestinal: no abdominal pain, no nausea and no vomiting Musculoskeletal: as per Subjective / HPI Physical Exam Physical Exam: HT: 5ft 3in WT: 78.9kg Constitutional: WD/WN, vitals as above no acute distress Respiratory: normal respiratory effort, lungs clear to auscultation no respiratory distress, no labored breathing and does not use accessory muscles Cardiovascular: RRR, no murmur, no edema Gastrointestinal (Abdomen): normal bowel sounds, soft, nontender, no hepatosplenomegaly Musculoskeletal: Knee: + knee abnormal to inspection (LEFT KNEE: ), + effusion (+1 effusion), + limited ROM of knee (ROM 0/3/110), + knee ROM with crepitation, + joint line tenderness (medial joint line) and + Rosalind's sign positive; no deformity, no skin erythema, no ecchymosis, no valgus laxity, no varus laxity, anterior drawer test negative, Mandi's sign negative and pivot shift test negative Results & Data Results & Data ([facility]) Diagnostic Findings Left Knee X-ray: left knee series confirm advanced degenerative changes to the left knee, greatest medial compartments and patellofemoral joint, showing joint space narrowing, osteophyte formation and subchondral sclerosis. no acute bony pathology noted.
--- NOTE | 2021-11-05 10:23 | Anesthesiology Consultation ---
Date of Service November 05, 2021 Assessment & Plan (1) Encounter for pre-operative examination: - COVID screening: Per assessment on 11/05: No known COVID-19 positive contacts or current COVID-19 related symptoms. Travel screen negative. Patient vaccinated . Preop Covid test done 11/07 is pending ([place]). - Check BSG AM DOS - S/P Right TKA (08/22/21): SAB at L4/5 (x1 attempt) + PNB at [facility]. No issues per post-op anesthesia progress note. Chart Review Chart Review: Acceptable Risk for Surgery and Patient NOT seen in Pre Admission Testing History Surgery Operation Date: 11/07/21 09:00 Proposed Procedures p Left Total Knee Arthroplasty - Zac Mendes DO Height/Weight Height: 5 ft 3 in Weight: 77.111 kg Allergies Allergy/AdvReac Type Severity Reaction Status Date / Time No Known Allergies Allergy Verified 11/05/21 08:15 Medications Home Medications Medication Instructions Recorded Confirmed Last Taken ferrous sulfate 325 mg (65 mg 325 mg PO QAM 02/19/21 11/05/21 08/21/21 05:15 iron) tablet (iron) folic acid 1 mg tablet 1 mg PO QAM 02/19/21 11/05/21 08/21/21 05:15 levothyroxine 100 mcg tablet 100 mcg PO QAM 02/19/21 11/05/21 08/22/21 05:30 multivitamin 1 tab PO QAM 02/19/21 11/05/21 08/21/21 05:15 propranolol 20 mg tablet 20 mg PO BID 02/19/21 11/05/21 08/22/21 05:30 ramipril 10 mg tablet 10 mg PO BID 02/19/21 11/05/21 08/21/21 14:00 semaglutide (Ozempic) 0.5 mg SUBCUT WK 02/19/21 11/05/21 08/19/21 07:00 simvastatin 40 mg tablet 40 mg PO HS 02/19/21 11/05/21 08/21/21 19:45 insulin glargine 100 unit/mL (3 15 unit SUBCUT BID 08/17/21 11/05/21 08/21/21 19:45 mL) subcutaneous pen (Lantus Solostar U-100 Insulin) acetaminophen 500 mg tablet 1,000 mg PO Q8H #60 tab 08/23/21 11/05/21 Unknown (Tylenol Extra Strength) aspirin 81 mg tablet,delayed 81 mg PO BID #60 tab 08/23/21 11/05/21 Unknown release Past Medical History Medical History Chronic anemia Diabetes mellitus, type 2 NIDDM Hyperlipidemia Hypertension Hypothyroidism Iron deficiency Osteoarthritis Rheumatoid arthritis Knees Past Family History Family History Grandmother (Paternal) Diabetes Father Diabetes Brother Throat cancer Past Surgical History Surgical History History of bilateral tubal ligation History of cardiac cath Several yrs ago > no stents History of carpal tunnel release Right History of cataract surgery R/L History of section x3 History of colonoscopy History of hip surgery Right femur + sonia (11/2020) r/t fracture History of tonsillectomy History of tooth extraction with implants History of total right knee replacement Right TKA (08/22/21): SAB at L4/5 (x1 attempt) + PNB at [facility]. No issues per post-op anesthesia progress note. S/P total knee replacement Right S/P trigger finger release R/L Social History Smoking Status: Never smoker Do You Dip or Chew Tobacco: No Hx Alcohol Use: No Hx Substance Use: No substance use type: does not use Lab Results Anesthesia Preop Results Results Anesthesia Widget: WBC 7.73 K/uL (4.8-10.8) 10/12/21 Hgb 10.5 g/dL (12.0-16.0) L 10/12/21 Hct 33.5 % (37-47) L 10/12/21 Plt 303 K/uL (130-400) 10/12/21 Na 132 mmol/L (136-145) L 10/12/21 K 3.8 mmol/L (3.5-5.1) 10/12/21 Cl 98 mmol/L (98-107) 10/12/21 CO2 27 mmol/L (21-32) 10/12/21 BUN 20 mg/dl (6-23) 10/12/21 Creat 0.78 mg/dl (0.6-1.2) 10/12/21 Glucose Level 51 mg/dl (70-99(Fasting)) L* 10/12/21 PT 11.9 Seconds (9.0-12.0) 10/12/21 PTT 32.6 Seconds (21.0-31.0) H 10/12/21 INR 1.1 (0.9-1.1) 10/12/21 HA1c 6.6 % (4.5-5.6) H 10/12/21 Urine Color Yellow 10/12/21 Urine Appearance Clear (Clear) 10/12/21 Urine pH 5.5 (4.5-7.5) 10/12/21 Urine Specific [place] 1.018 (1.000-1.030) 10/12/21 Urine Protein Negative (Negative) 10/12/21 Urine Glucose (UA) Negative (Negative) 10/12/21 Urine Ketones Negative (Negative) 10/12/21 Urine Blood 3+ (Negative) H 10/12/21 Urine Nitrite Negative (Negative) 10/12/21 Urine Bilirubin Negative (Negative) 10/12/21 Urine Urobilinogen Negative (Negative) 10/12/21 Urine Leukocyte Esterase Negative (Negative) 10/12/21 Urine WBC (Auto) 1-5 /hpf (0-5) 10/12/21 Urine RBC (Auto) >30 /hpf (0-4) H 10/12/21 Urine Hyaline Casts (Auto) 0 /lpf (0-5) 10/12/21 Urine Epithelial Cells (Auto) 0-5 /lpf (0-5) 10/12/21 Urine Bacteria (Auto) Negative (Negative) 10/12/21 Testing Laboratory Results Anemia stable. Glucose 51 on most recent labs 10/12/21- pt IDDM. Will be rechecking glucose AM DOS* Electrocardiogram Date: 02/26/21 Normal sinus rhythm, rate [address] abnormality Non-specific RV conduction delay Chest X-Ray Date: 02/26/21 Moderate enlargement of the cardiac silhouette with mitral annular calcifications. Calcified plaque of the thoracic aorta. No pneumothorax, pleural effusion, airspace consolidation or overt pulmonary edema. Degenerative changes of the shoulders and spine with mild sigmoidal thoracolumbar scoliosis. Cervical Spine Date: 02/26/21 FINDINGS: No fractures or subluxations are identified. Degenerative changes including disc space narrowing, endplate sclerosis, and osteophyte formation are most prominent at C5-C6. The alignment is anatomic Prevertebral soft tissues are within normal limits. IMPRESSION: No evidence for acute fracture or subluxation.
[~2021-11-07 07:28] MED LIST changes: -BUPIVACAINE 0.25% 30 ML VIAL ONE; -DEXAMETHASONE SOD INJ 4 MG/ML VIAL ONE; -EPINEPHrine INJ 1 MG/ML AMP ONE; +ROPIVACAINE 0.5% 5 MG/ML 30 ML VIAL ONE; +ROPIVACAINE 0.5% HCL/PF 150 MG, BUPIVACAINE 0.75% MPF 20 ML, EPINEPHrine 30MG/30ML (OR ... INFIL SCH; -ROPIVACAINE 0.5% HCL/PF 150 MG, BUPIVACAINE 0.75% MPF 20 ML, EPINEPHrine 30MG/30ML (OR ... INSTIL SCH; +ceFAZolin 1000MG 1,000 MG/7.5 ML SYR IV SCH; -ceFAZolin 2000MG 2,000 MG/15 ML SYR IV SCH; -oxyCODONE HCL 10 MG TABCR (OxyCONTIN) PO SCH
[2021-11-07] MEDS ORDERED: KETAMINE 50 MG/5 ML SYRINGE ONE (08:00)
[2021-11-07] MEDS ORDERED: MIDAZOLAM HCL 1 MG/ML 2ML VIAL ONE (08:00)
[2021-11-07] MEDS ORDERED: fentaNYL citrate 100 MCG/2 ML VIAL ONE (08:00)
--- NOTE | 2021-11-07 08:18 | History & Physical Bridge Note ---
Date of Service November 07, 2021 History & Physical Bridge Note I have examined the patient, reviewed the History & Physical and in the interval since the performance of the History & Physical I have noted the following changes of clinical significance: no changes noted
[2021-11-07] MEDS ORDERED: ONDANSETRON INJ 2 MG/ML 2 ML VIAL IV PRN ×2 (09:07→19:02)
[2021-11-07] MEDS ORDERED: fentaNYL citrate 100 MCG/2 ML VIAL IV PRN (09:07)
[2021-11-07] MEDS ORDERED: ATROPINE SULFATE 0.1 MG/ML 10ML SYR IV PRN (09:07)
[2021-11-07] MEDS ORDERED: ePHEDrine sulfate 50 MG/ML AMP IV PRN (09:07)
[2021-11-07] MEDS ORDERED: ORTHO JOINT ANESTHETIC ONE (09:18)
[2021-11-07] MEDS ORDERED: PROPOFOL IV EMULSION 10 MG/ML 20 ML VIAL IV ONE (09:31)
[2021-11-07] MEDS ORDERED: ONDANSETRON INJ 2 MG/ML 2 ML VIAL ONE (09:31)
[2021-11-07] MEDS ORDERED: GLYCOPYRROLATE 0.2 MG/ML VIAL ONE (09:31)
[2021-11-07] MEDS ORDERED: ePHEDrine sulfate 50 MG/ML AMP ONE (09:45)
[2021-11-07] MEDS ORDERED: SODIUM CHLORIDE 0.9% INJ 10 ML VIAL ONE (09:45)
[2021-11-07] MEDS ORDERED: PHENYLEPHRINE HCL 10 MG/ML VIAL ONE (10:12)
--- NOTE | 2021-11-07 10:35 | Operative Report ---
Post Operative Report Pre & Post Diagnosis Operation Date: 11/07/21 09:00 Pre-Op Diagnosis: Osteoarthritis Knee Left Post-Op Diagnosis: Osteoarthritis Knee Left I identified the patient and participated in the time-out.: Yes Procedure Operation Date: 11/07/21 09:00 Actual Procedures p Left Total Knee Arthroplasty(Left) utilizing [employer] persona 8 standard femur posterior stabilized tibia size E with a 14 x 30 stem polyten with appropriate posterior stabilization patella 31 oval Zac Mendes DO Surgeon Zac Mendes DO Research/Program Director MARISA Romero Estimated Blood Loss 5 Findings Consistent with Post-Op Diagnosis Patient presents with severe end-stage DJD varus alignment subchondral sclerosis with [id number] changes marginal osteophytes subchondral cystic changes and moderate to large effusion Specimens Bone and cartilage Drains Medium bore Hemovac Anesthesia Type MAC Spinal Regional Complications none Disposition Accompanied Patient To Recovery: No Disposition: Recovery Room Indications Patient presents with severe end-stage DJD with translation of femur on the tibia with medial subluxation with eburnated [id number] medial lateral ligamentous instability failed attempted conservative management with physical therapy anti-inflammatories relative rest activity modification corticosteroid injection viscosupplementation above intraoperative findings were noted. Description of Procedure After proper prepping and draping of the left lower extremity anterior midline incision was made over the region of the extensor extensor mechanism after meticulous hemostasis was obtained and maintained in subcutaneous tissues a medial parapatellar incision was made The patella was subluxed lateralward the medial lateral gutter were cleaned from any hypertrophic synovitis and scar tissue of the distal femoral block was placed and the distal femoral osteotomy cut was made subsequently the chamfers anterior and posterior osteotomy cuts were made utilizing the 4-in-1 block the tibia was subsequently subluxed anteriorward medial and ateral meniscal remnants were excised in their entirety remnants of the anterior and posterior cruciate ligaments were excised in their entirety excellent exposure of the proximal tibia was obtained the tibial osteotomy guide was placed on the proximal tibial osteotomy cut was made once again the knee was irrigated with copious amounts of sterile saline solution the patella was subsequently everted lateralward thickened scar tissue around the patella was removed the patella was subsequently cut utilizing a freehand technique and was drilled prepared for final preparation and placement of patella socially flexion-extension gaps were checked and the equal and symmetric trials were placed to the appropriate femoral and tibial trials with poly-spacer being placed for equal flexion and extension gaps and full range of motion i ncluding extension to 0 and flexion to 140 the trial components after having been taken to recovery range of motion was subsequently removed meticulous hemostasis was obtained and maintained subsequently a knee block injection of joint cocktail including ropivacaine 0.5% 150 mg. Bupivacaine 0.5% epinephrine 1-200,030 mL's toradol 30 mg dexamethasone 4 mg ketamine 10 mg clonidine 100 micrograms normal saline solution 30 mg was infiltrated into the soft tissues of the posterior knee medial lateral gutters and periosteal synovium special attention was paid to protect neurovascular structures at all times subsequently trial components having been removed the knee was irrigated with sterile saline solution. debris was removed the proximal tibia was subsequently prepared and was made ready for the placement of the tibial component tibial component was also cemented and tamped into position the femoral component was subsequently placed and cemented in the position the patellar component was subsequently cemented in position because hemostasis once again obtained and maintained wound having been thoroughly irrigated with debridement and debridement lavage was performed as well as a medial parapatellar incision closed with #1 Vicryl in interrupted fashion subcutaneous was closed with #2 Vicryl skin was closed with skin clips. PA-C was necessary for prepping and drapping as well as wound closure of deep fascia Sub cutaneous tissue and skin and was necessary for the case. A sterile compressive dressing was placed patient was taken to recovery in stable condition of report dictated by Vaughn I attest to the content of the Intraoperative Record and any orders documented therein. Any exceptions are noted below.Due to the complex nature of the procedure, the entire surgery was performed with the operational assistance of MARISA Romero. The materials assistant, under direct supervision, was involved in the actual performance of all aspects of the surgical procedure including hemostasis, tissue retraction and incision, instrument management, patient positioning, and wound closure. I attest to the content of the Intraoperative Record and any orders documented therein. Any exceptions are noted below.
--- NOTE | 2021-11-07 12:30 | XRay Report ---
XR knee LT 1 or 2V routine CLINICAL HISTORY: Surgical Post Op. Status post knee replacement COMPARISON STUDY: No previous studies for comparison. TECHNIQUE: 2 left knee views FINDINGS: The patient is status post total knee replacement. The prosthetic components are in anatomi c alignment with no acute abnormality seen. Air is present within the soft tissues from the procedure . IMPRESSION: 1. Status post total knee replacement with resurfacing of the patella. ACT 112: Negative or not required by law. Electronically signed by: Michael Frye M.D. 11/07/2021 12:29 PM
--- NOTE | 2021-11-07 12:53 | Anesthesiology Progress Note ---
Date of Service November 07, 2021 Anesthesia Post Procedure Vital Signs Vital Signs: Temp Pulse Resp BP Pulse Ox 11/07/21 12:30 67 18 123/63 98 11/07/21 12:15 69 17 130/78 96 11/07/21 12:00 36.4 C L 72 17 117/66 95 11/07/21 11:50 68 18 116/64 95 11/07/21 11:40 65 18 117/64 96 11/07/21 11:30 68 18 119/68 98 11/07/21 11:20 67 18 125/63 100 11/07/21 11:12 36.6 C 72 18 116/70 100 11/07/21 08:07 36.5 C 63 20 201/90 H 100 Transfer of Care Handoff Completed per policy Notes Mental Status: alert / awake / arousable and participated in evaluation Patient Amnestic to Procedure: Yes Nausea / Vomiting: adequately controlled Pain: adequately controlled Airway Patency, RR, SpO2: stable & adequate BP & HR: stable & adequate and see Notes below Hydration State: stable & adequate Neuraxial Anesthesia: was administered and sensory block is resolving Anesthetic Complications: no major complications apparent and Pt Satisfied with anesthetic care Notes: During procedure patient's HR elevated to high 90'slow 100's in what appeared to be ventricular conduction abnormality (seen on ECG's preop). SpO2 normal and BP stable. Resolved by end of case and ECG showed NSR with no such abnormality in PACU. Despite this, I still felt it was appropriate to send her to tele to be more closely monitored.
--- NOTE | 2021-11-07 17:23 | Electrocardiogram Report ---
Test Reason : Blood Pressure : / mmHG Vent. Rate : 066 BPM Atrial Rate : 066 BPM P-R Int : 160 ms QRS Dur : 120 ms QT Int : 476 ms P-R-T Axes : 049 -14 -19 degrees QTc Int : 499 ms Normal sinus rhythm Non-specific intra-ventricular conduction delay Nonspecific ST abnormality Abnormal ECG When compared with ECG of 26-FEB-2021 14:31, No significant change was found Confirmed by Akshat Edwards ([id number]) on 11/07/2021 5:23:26 PM Referred By: Zac Mendes Confirmed By:Ranulfo Edwards
[2021-11-07] MEDS ORDERED: NALOXONE HCL 0.4 MG/1 ML VIAL/CARP IV PRN (19:02)
[2021-11-07] MEDS ORDERED: bisacodyL 10 MG SUPP PR PRN (19:02)
[2021-11-07] MEDS ORDERED: PHARMACY GLYCEMIC MGMT CONSULT PRN (19:02)
[2021-11-07] MEDS ORDERED: HYDROmorphone INJ 0.5 MG/0.5 ML SYR IV PRN (19:02)
[2021-11-07] MEDS ORDERED: SODIUM CHLORIDE 0.9% 1000ML 1,000 ML IV SCH (19:02)
[2021-11-07] MEDS ORDERED: oxyCODONE HCL IR 5 MG TAB (IMMEDIATE RELEASE) PO PRN (19:02)
[2021-11-07] MEDS ORDERED: MAGNESIUM HYDROXIDE SUSP 30 ML UDC PO PRN (19:02)
--- NOTE | 2021-11-07 19:28 | Hospitalist Consultation ---
Date of Consultation November 07, 2021 Assessment & Plan (1) Arthritis of right knee: 86-year-old female with past medical history of DM 2, hyperlipidemia, hypertension, cerebrovascular disease, GERD, hypothyroidism now status post left total knee arthroplasty. Right knee arthritis status post right total knee arthroplasty PT/OT to evaluate Analgesia per orthopedics DVT prophylaxis per orthopedics plan for aspirin 81 mg twice daily for 1 month postop Intraoperative tachycardia Per anesthesiology, heart rate elevated at high 90s to low 100s during procedure, appeared to be ventricular conduction abnormality EKG preoperatively showing NSR, nonspecific intraventricular conduction delay, nonspecific ST abnormality this was stable from previous EKG in February 2021 Postoperatively, patient without any cardiac complaints, heart rate well controlled Monitor in telemetry bed BMP, Mg and Phosphorous in a.m. for electrolytes Hypertension/cerebrovascular disease/hyperlipidemia Continue propranolol 20 mg twice daily, simvastatin 40 mg daily Ramipril no longer available, will convert to enalapril 20 mg twice daily Continue simvastatin 40 mg p.o. at bedtime Hypothyroidism Continue home levothyroxine 100 mcg p.o. daily Anemia Per chart review, chronically with hemoglobin in the 10s Continue ferrous sulfate 325 mg daily Monitor CBC in a.m. DM2 Hold home regimen Glycemic consult already in place DVT prophylaxis: Aspirin 81 mg p.o. twice daily per orthopedics Diet: Heart healthy, DM 2 patient tolerating p.o. well, discontinued IV fluids Dispo: Med telemetry for monitoring CODE STATUS: Full (2) Hypertension: (3) Hyperlipidemia: (4) Diabetes mellitus, type 2: (5) Hypothyroidism: Supervising Physician Co-Signing Physician Notes Patient seen and examined, chart reviewed, case discussed with Dr. Donnie Dyer and I agree with the assessment and plan as above. In brief, patient is an 86yo female with history of HTN, HLP, DM, GERD and iron deficient anemia s/p left TKA performed today by Dr. Mendes under MAC/Spinal anesthesia. Procedure well tolerated with no complications identified. EBL 5mL. Patient had some elevated heart rates with ventricular conduction pattern noted in OR which is similar to prior EKGs. She has been admitted to PCU for continued cardiac monitoring. Denies chest pain, palpitations, dizziness. She has eaten and ambulated without difficulty. +UOP. No BM as of yet On exam she is resting comfortably in bed, NAD Dressing in place, drain with minimal serousanguinous output HEENT - MMM, Neck supple Heart - +S1/S2, regular, no m/r/g Lungs - CTA Abd - +BS, soft, NT/ND Ext - Warm, sensation intact Labs and images reviewed Assessment/Plan -Pain control, anti-emetics and bowel regimen per primary team. PT/OT and discharge planning per primary team. -Lantus 15u BID, Pharmacy glycemic management consultation placed by primary team -Telemetry monitoring - chemistry/Mg/PO4 in AM - replete as needed -Remainder as above History of Present Illness Reason for Consultation: Medical Management Attending Physician: Zac Mendes, History of Present Illness Stephanie Bernstein is an 86-year-old female with past medical history of diabetes type 2, hyperlipidemia, hypertension, cerebrovascular disease, GERD, hypothyroidism. She underwent left total knee arthroplasty earlier today for arthritis. She had tried and failed conservative measures with cortisone and Visco injections. Her procedure course was overall uncomplicated, except for mildly elevated heart rate at high 90s to low 100s. Per anesthesiology appeared to be ventricular conduction abnormality, which had been seen on preoperative ECGs. Her other vital signs remained stable at that time. She was sent to telemetry postoperatively for close monitoring. Upon my evaluation patient is doing well, sitting up in bed and eating dinner. She denies any chest pain, palpitations, shortness of breath, cough, fever, chills, nausea, vomiting, abdominal pain. She reports that she has some mild pain for which she is already requested Tylenol. Otherwise feels well. Allergies Allergy/AdvReac Type Severity Reaction Status Date / Time No Known Allergies Allergy Verified 11/07/21 08:02 Home Medications Medication Instructions Recorded Confirmed Type ferrous sulfate 325 mg (65 mg 325 mg PO QAM 02/19/21 11/07/21 History iron) tablet (iron) folic acid 1 mg tablet 1 mg PO QAM 02/19/21 11/07/21 History levothyroxine 100 mcg tablet 100 mcg PO QAM 02/19/21 11/07/21 History multivitamin 1 tab PO QAM 02/19/21 11/07/21 History propranolol 20 mg tablet 20 mg PO BID 02/19/21 11/07/21 History ramipril 10 mg tablet 10 mg PO BID 02/19/21 11/07/21 History semaglutide (Ozempic) 0.5 mg SUBCUT WK 02/19/21 11/07/21 History simvastatin 40 mg tablet 40 mg PO HS 02/19/21 11/07/21 History insulin glargine 100 unit/mL (3 15 unit SUBCUT BID 08/17/21 11/07/21 History mL) subcutaneous pen (Lantus Solostar U-100 Insulin) acetaminophen 500 mg tablet 1,000 mg PO Q8H #60 tab 08/23/21 11/07/21 Rx (Tylenol Extra Strength) aspirin 81 mg tablet,delayed 81 mg PO BID #60 tab 08/23/21 11/07/21 Rx release Patient History Medical History (Updated 11/07/21 @ 20:23 by Zack Velez MD) Chronic anemia Diabetes mellitus, type 2 NIDDM Hyperlipidemia Hypertension Hypothyroidism Iron deficiency Osteoarthritis Rheumatoid arthritis Knees Surgical History History of bilateral tubal ligation History of cardiac cath Several yrs ago > no stents History of carpal tunnel release Right History of cataract surgery R/L History of section x3 History of colonoscopy History of hip surgery Right femur + sonia (11/2020) r/t fracture History of tonsillectomy History of tooth extraction with implants History of total right knee replacement Right TKA (08/22/21): SAB at L4/5 (x1 attempt) + PNB at [facility]. No issues per post-op anesthesia progress note. S/P total knee replacement Right S/P trigger finger release R/L Family History Grandmother (Paternal) Diabetes Father Diabetes Brother Throat cancer Social History Smoking Status: Never smoker Second Hand Exposure: No; Do You Dip or Chew Tobacco: No; Tobacco Cessation Education Requested by Patient: No Hx Alcohol Use: No Hx Substance Use: No Preferred Language: British Communication Ability: Effective Quality Cloth Tester Required: No Beliefs That Will Affect Care: None Current Living Situation: Alone Current Living Situation Comment: [facility] in [place] > apartments current occupational status: retired Other Information That Helps Us Care for You: No Feels Safe at Home: Yes Safety Concerns: Feels Safe At This Time Assistive Devices: Cane and Walker Assistive Devices Comment: dental implants Review of Systems Review of Systems: All systems reviewed & are unremarkable except as noted in HPI & below Physical Exam Physical Exam: GENERAL: A&Ox3. NAD. HEENT: PERRL, EOMI. Moist mucous membranes. NECK: No JVD. CHEST/LUNGS: CTAB A/P. No crackles, wheezes, rales, rhonchi. HEART: RRR. No m/g/r. No carotid bruits. ABDOMEN: NT/ND, soft. BS+ x4 EXTREMITIES: No cyanosis, no clubbing. Left knee with dressings that are c/d/i. SCDs in place. SKIN: Warm and dry. No rashes or lesions. PSYCHIATRIC: Euthymic affect, no SI, no pressured speech, no hallucinations NEUROLOGIC: No FND. CN II-XII grossly intact. Results & Data Results & Data ([facility]) Vital Signs (Past 12 Hours) Vital Signs Temp Pulse Pulse Resp BP Pulse Ox 11/07/21 17:06 36.3 C L 79 18 168/82 H 97 11/07/21 15:29 36.3 C L 74 18 159/84 H 97 11/07/21 15:23 71 11/07/21 13:00 71 15 127/89 94 11/07/21 12:45 65 20 129/74 97 11/07/21 12:30 67 18 123/63 98 11/07/21 12:15 69 17 130/78 96 11/07/21 12:00 36.4 C L 72 17 117/66 95 11/07/21 11:50 68 18 116/64 95 11/07/21 11:40 65 18 117/64 96 11/07/21 11:30 68 18 119/68 98 11/07/21 11:20 67 18 125/63 100 11/07/21 11:12 36.6 C 72 18 116/70 100 11/07/21 08:07 36.5 C 63 20 201/90 H 100 Resident Activity Tracking Resident Involvement: Resident Care Provided Care Provided: Adult Hospital Medicine
--- NOTE | 2021-11-07 19:58 | Pharmacy Report ---
Pharmacy Glycemic Short Note 2 - Date of Service November 07, 2021 - Glycemic Short BSG Results (Last 24 hours): 11/07/21 11/07/21 11/07/21 07:57 11:14 16:19 POC Glucose 84 87 164 H 11/07/21 19:46 POC Glucose 164 H OUTPATIENT ANTIDIABETIC REGIMEN: * Lantus 15 units SC BID * Semaglutide * HbA1c 6.6% on 10/12/21 ASSESSMENT: * 86 yo F with T2DM admitted 11/07 for TKA. Dexamethasone po received preop * No Lantus yet today per medication history - will provide weight-based moderate stress *daily* dose (slightly below home dose) * Will initiate weight-based moderate stress Novolog and add two overnight checks PLAN FOR INPATIENT GLYCEMIC CONTROL: * Hold outpatient diabetes medications * Basal insulin * Lantus 25 units SQ x1 now * Bolus insulin * NovoLog per scale ACHS or Q6hrs while NPO * Goal Range: Low 110 mg/dL - High 140 mg/dL * Correction Factor: 30 mg/dL/unit * Nutritional / Prandial insulin per carb ratio of 1 unit per 10 grams CHO consumed
[2021-11-07] MEDS ORDERED: INSULIN GLARGINE SOLOSTAR 100 UNITS/ML 3 ML PEN SC ONE (20:00)
[2021-11-07] MEDS: ACETAMINOPHEN 500 MG TAB PO SCH (20:31)
[2021-11-07] MEDS: ASPIRIN 81 MG ECTAB PO SCH (20:35)
[2021-11-07] MEDS: DOCUSATE SODIUM 100 MG CAP PO SCH (20:36)
[2021-11-07] MEDS: INSULIN ASPART PER UNIT SC SCH ×2 (20:37→23:41)
[2021-11-07] MEDS: PROPRANOLOL HCL 20 MG TAB PO SCH (20:37)
[2021-11-07] MEDS ORDERED: INSULIN GLARGINE SOLOSTAR 100 UNITS/ML 3 ML PEN SQ SCH (21:00)
[2021-11-07] MEDS ORDERED: SENNA 8.6 MG TAB PO SCH (21:00)
[2021-11-07] MEDS ORDERED: ENALAPRIL MALEATE 10 MG TAB PO SCH (21:00)
[2021-11-07] MEDS ORDERED: SIMVASTATIN 40 MG TAB PO SCH (21:00)
--- NOTE | 2021-11-07 23:52 | Billing Data ---
Date of Service November 07, 2021 Coding Level of Care Code 02587 Inpt Consult Level 3
[2021-11-08] MEDS: ceFAZolin 2000MG 2,000 MG/15 ML SYR IV SCH ×2 (00:15→08:28)
[2021-11-08] MEDS: INSULIN ASPART PER UNIT SC SCH ×3 (04:43→12:16)
[2021-11-08] MEDS: ACETAMINOPHEN 500 MG TAB PO SCH ×2 (06:17→13:05)
[2021-11-08 06:41] LABS: Hematocrit (blood only) 28.6 % (37-47); Hemoglobin 9.1 g/dL (12.0-16.0); Mean Corpuscular Hemoglobin 26.1 pg (25-34); Mean Corpuscular Hgb Conc 31.8 g/dL (32-36); Mean Corpuscular Volume 81.9 fL (80-100); Mean Platelet Volume 10.4 fL (7.4-10.4); Platelet Count 224 K/uL (130-400); RDW Coefficient of Variation 15.5 % (11.5-14.5); RDW Standard Deviation 45.8 fL (36.4-46.3); Red Blood Count 3.49 M/uL (4.2-5.4); White Blood Count 11.12 K/uL (4.8-10.8)
[2021-11-08 07:01] LABS: BUN Creatinine Ratio 30.9 (10-20); Calcium 8.7 mg/dl (8.5-10.1); Creatinine Clr Calc Pharmacy 51.5 ml/min; Est GFR (African American) 77.3 ml/min; Est GFR (Non-African American) 66.7 ml/min; Magnesium 1.5 mg/dl (1.7-2.4); Phosphorus 4.1 mg/dl (2.5-4.9); Potassium 4.4 mmol/L (3.5-5.1)
[2021-11-08] MEDS: DOCUSATE SODIUM 100 MG CAP PO SCH (08:17)
[2021-11-08] MEDS: PROPRANOLOL HCL 20 MG TAB PO SCH (08:17)
[2021-11-08] MEDS: ASPIRIN 81 MG ECTAB PO SCH (08:17)
[2021-11-08] MEDS ORDERED: FOLIC ACID 1 MG TAB PO SCH (09:00)
[2021-11-08] MEDS ORDERED: ENALAPRIL MALEATE 10 MG TAB PO SCH (09:00)
[2021-11-08] MEDS ORDERED: MULTIVITAMIN TAB PO SCH (09:00)
[2021-11-08] MEDS ORDERED: FERROUS SULFATE 325 MG TAB PO SCH (09:00)
[2021-11-08] MEDS ORDERED: LEVOTHYROXINE SODIUM 100 MCG TABLET PO SCH (09:00)
[2021-11-08] MEDS: MAGNESIUM SULFATE / D5W 1 GM/100 ML BAG IV SCH ×2 (11:07→13:04)
--- NOTE | 2021-11-08 11:47 | Orthopedic Progress Note ---
Date of Service November 08, 2021 Assessment & Plan (1) Arthritis of knee, left: Plan: Postop day 1 status post left total knee arthroplasty. PT/OT protocols. Weightbearing as tolerated. Patient states that she underwent her therapy sessions today and is progressing. They worked with her on stairs as well. DVT prophylaxis-aspirin p.o. twice daily, SCDs, HOLGER montilla. Pain management as written. DC planning-patient is planning for outpatient PT upon discharge. Patient currently undergoing repletion of magnesium and several other labs are being drawn. I have spoken to Dr. Pool. She will see the patient later this morning. She is to receive another dose of magnesium late this afternoon. If patient is remaining stable, she could possibly be discharged later this evening. Admission and Anticipated Discharge Date Admission Date: November 07, 2021 Supervising Physician Co-Signing Physician Notes Patient seen and examined. Agree with MARISA Colón's note as above. Magnesium repletion is completed. She feels ready to go home. We can set her up for discharge today. Subjective Postop day 1 Patient sitting in her chair at the bedside. No complaints today. States that hospitalist service has ordered her some other medications and magnesium repletion as well. She is hoping to go home today. She denies any shortness of breath, chest pain, lightheadedness. Physical Exam Physical Exam: Dressings are clean, dry, and intact. Calves are soft and nontender. Neurovascular is intact. Toes are mobile. She has good dorsiflexion and plantarflexion of the left foot. Hemovac drainage was around 200 cc. Results & Data ([facility]) Vital Signs (Past 12 Hours) Vital Signs Temp Pulse Pulse Resp BP BP Pulse Ox 11/08/21 07:26 36.4 C L 62 18 149/69 H 98 11/08/21 06:13 68 11/08/21 04:47 36.3 C L 72 16 132/69 97 11/08/21 00:00 77 11/07/21 23:47 37.0 C 75 16 123/69 99 Laboratory Results 11/08/21 11/08/21 11/08/21 Range/Units 11:23 10:23 07:24 WBC (4.8-10.8) K/uL RBC (4.2-5.4) M/uL Hgb (12.0-16.0) g/dL Hct (37-47) % MCV (80-100) fL MCH (25-34) pg MCHC (32-36) g/dL RDW Std Deviation (36.4-46.3) fL RDW Coeff of Pari (11.5-14.5) % Plt Count (130-400) K/uL MPV (7.4-10.4) fL Sodium (136-145) mmol/L Potassium (3.5-5.1) mmol/L Chloride (98-107) mmol/L Carbon Dioxide (21-32) mmol/L Anion Gap (3-11) BUN (6-23) mg/dl Creatinine (0.6-1.2) mg/dl Est Cr Clr Drug Dosing ml/min Est GFR ( Amer) ml/min Est GFR (Non-Af Amer) ml/min BUN/Creatinine Ratio (10-20) Glucose (70-99(Fasting)) mg/dl POC Glucose 220 H 147 H (70-99) mg/dl Calcium (8.5-10.1) mg/dl Phosphorus (2.5-4.9) mg/dl Magnesium (1.7-2.4) mg/dl TSH 0.488 (0.300-4.500) uIu/ml 11/08/21 11/08/21 11/08/21 Range/Units 06:02 06:02 04:27 WBC 11.12 H (4.8-10.8) K/uL RBC 3.49 L (4.2-5.4) M/uL Hgb 9.1 L (12.0-16.0) g/dL Hct 28.6 L (37-47) % MCV 81.9 (80-100) fL MCH 26.1 (25-34) pg MCHC 31.8 L (32-36) g/dL RDW Std Deviation 45.8 (36.4-46.3) fL RDW Coeff of Pari 15.5 H (11.5-14.5) % Plt Count 224 (130-400) K/uL MPV 10.4 (7.4-10.4) fL Sodium 130 L (136-145) mmol/L Potassium 4.4 (3.5-5.1) mmol/L Chloride 98 (98-107) mmol/L Carbon Dioxide 26 (21-32) mmol/L Anion Gap 6 (3-11) BUN 25 H (6-23) mg/dl Creatinine 0.81 (0.6-1.2) mg/dl Est Cr Clr Drug Dosing 51.5 ml/min Est GFR ( Amer) 77.3 ml/min Est GFR (Non-Af Amer) 66.7 ml/min BUN/Creatinine Ratio 30.9 H (10-20) Glucose 153 H (70-99(Fasting)) mg/dl POC Glucose 145 H (70-99) mg/dl Calcium 8.7 (8.5-10.1) mg/dl Phosphorus 4.1 (2.5-4.9) mg/dl Magnesium 1.5 L (1.7-2.4) mg/dl TSH (0.300-4.500) uIu/ml 11/07/21 11/07/21 11/07/21 Range/Units 23:36 19:46 16:19 WBC (4.8-10.8) K/uL RBC (4.2-5.4) M/uL Hgb (12.0-16.0) g/dL Hct (37-47) % MCV (80-100) fL MCH (25-34) pg MCHC (32-36) g/dL RDW Std Deviation (36.4-46.3) fL RDW Coeff of Pari (11.5-14.5) % Plt Count (130-400) K/uL MPV (7.4-10.4) fL Sodium (136-145) mmol/L Potassium (3.5-5.1) mmol/L Chloride (98-107) mmol/L Carbon Dioxide (21-32) mmol/L Anion Gap (3-11) BUN (6-23) mg/dl Creatinine (0.6-1.2) mg/dl Est Cr Clr Drug Dosing ml/min Est GFR ( Amer) ml/min Est GFR (Non-Af Amer) ml/min BUN/Creatinine Ratio (10-20) Glucose (70-99(Fasting)) mg/dl POC Glucose 185 H 164 H 164 H (70-99) mg/dl Calcium (8.5-10.1) mg/dl Phosphorus (2.5-4.9) mg/dl Magnesium (1.7-2.4) mg/dl TSH (0.300-4.500) uIu/ml
--- NOTE | 2021-11-08 13:11 | Hospitalist Progress Note ---
Date of Service November 08, 2021 Assessment & Plan (1) Arthritis of right knee: Plan: 86-year-old female with past medical history of DM 2, hyperlipidemia, hypertension, cerebrovascular disease, GERD, hypothyroidism now status post left total knee arthroplasty. Right knee arthritis status post right total knee arthroplasty DOing well post-op, pain controlled, ambulating, eating, no nausea With some mild blood loss hgb down to 9.1 from 10 baseline PT/OT worked with her and she is planning for outpatient PT after dc to home Analgesia per orthopedics DVT prophylaxis per orthopedics plan for aspirin 81 mg twice daily for 1 month postop, HOLGER montilla Intraoperative tachycardia Per anesthesiology, heart rate elevated at high 90s to low 100s during procedure, appeared to be ventricular conduction abnormality EKG preoperatively showing NSR, nonspecific intraventricular conduction delay, nonspecific ST abnormality this was stable from previous EKG in February 2021 Postoperatively, patient without any cardiac complaints, heart rate well controlled, NSR and normal rates on tele monitoring overnight -replace magnesium today prior to discharge (2) Hypomagnesemia: Plan: Mag 1.5 replace with 2 grams IV magnesium follow as outpt (3) Hyponatremia: Plan: mild, Na+ 132 preop and now 130 Ur Na and Ur Osm ordered but not collected prior to discharge TSH normal. COrtisol not checked but certainly no clinical evidence of adrenal insufficiency no evidence of volume overload COuld be SIADH asymptomatic advised f/u with PCP with repeat labs as outpt liberalize salt in diet limit free water intake recommended (4) Chronic anemia: Plan: Anemia Per chart review, chronically with hemoglobin in the 10s Continue ferrous sulfate 325 mg daily hgb drop slightly to 9.1 after surgery, HD stable f/u with PCP (5) Hypertension: Plan: BPs stable Continue propranolol 20 mg twice daily and continue home ramipril (6) Hyperlipidemia: Plan: continue simvastatin 40 mg daily (7) Diabetes mellitus, type 2: Plan: managed here with insulin no meds at home A1C well controlled at 6.6% (8) Hypothyroidism: Plan: TSH here normal at 0.4 Continue home levothyroxine 100 mcg p.o. daily Plan: Dispo-stable for dc to home, f/u with PCP regarding hyponatremia Admission and Anticipated Discharge Date Admission Date: November 07, 2021 Subjective Pt feeling very well.No nausea, is eating. Not much pain. No chest pains or SOB. Ambulated quite a bit with PT and is ready to get home today. I discussed her care with Ortho Tele with NSR, normal rates Review of Systems Review of Systems: All systems reviewed & are unremarkable except as noted in HPI & below Physical Exam Constitutional: WD/WN, vitals as above Eyes: + anicteric sclerae ENMT: external ear and nose normal, oropharynx normal Neck: trachea midline, no thyromegaly Respiratory: normal respiratory effort, lungs clear to auscultation Cardiovascular: RRR, no murmur, no edema Chest (Breasts): Chest: normal inspection of chest Gastrointestinal (Abdomen): normal bowel sounds, soft, nontender, no hepatosplenomegaly Musculoskeletal: Extremities: + extremities abnormal to inspection (RLE in GLYNN wrap,drain in place), no cyanosis and no clubbing Skin: no rashes, warm and dry Neurologic: moves all extremities and awake; no focal motor deficits Psychiatric: A+Ox3, euthymic affect Lymphatic: no lymphedema Results & Data Results & Data ([facility]) Vital Signs (Past 12 Hours) Vital Signs Temp Pulse Pulse Resp BP BP Pulse Ox 11/08/21 12:15 36.6 C 62 18 104/33 L 98 11/08/21 07:26 36.4 C L 62 18 149/69 H 98 11/08/21 06:13 68 11/08/21 04:47 36.3 C L 72 16 132/69 97 Laboratory Results 11/08/21 11/08/21 11/08/21 Range/Units 11:23 10:23 07:24 WBC (4.8-10.8) K/uL RBC (4.2-5.4) M/uL Hgb (12.0-16.0) g/dL Hct (37-47) % MCV (80-100) fL MCH (25-34) pg MCHC (32-36) g/dL RDW Std Deviation (36.4-46.3) fL RDW Coeff of Pari (11.5-14.5) % Plt Count (130-400) K/uL MPV (7.4-10.4) fL Sodium (136-145) mmol/L Potassium (3.5-5.1) mmol/L Chloride (98-107) mmol/L Carbon Dioxide (21-32) mmol/L Anion Gap (3-11) BUN (6-23) mg/dl Creatinine (0.6-1.2) mg/dl Est Cr Clr Drug Dosing ml/min Est GFR ( Amer) ml/min Est GFR (Non-Af Amer) ml/min BUN/Creatinine Ratio (10-20) Glucose (70-99(Fasting)) mg/dl POC Glucose 220 H 147 H (70-99) mg/dl Calcium (8.5-10.1) mg/dl Phosphorus (2.5-4.9) mg/dl Magnesium (1.7-2.4) mg/dl TSH 0.488 (0.300-4.500) uIu/ml 11/08/21 11/08/21 11/08/21 Range/Units 06:02 06:02 04:27 WBC 11.12 H (4.8-10.8) K/uL RBC 3.49 L (4.2-5.4) M/uL Hgb 9.1 L (12.0-16.0) g/dL Hct 28.6 L (37-47) % MCV 81.9 (80-100) fL MCH 26.1 (25-34) pg MCHC 31.8 L (32-36) g/dL RDW Std Deviation 45.8 (36.4-46.3) fL RDW Coeff of Pari 15.5 H (11.5-14.5) % Plt Count 224 (130-400) K/uL MPV 10.4 (7.4-10.4) fL Sodium 130 L (136-145) mmol/L Potassium 4.4 (3.5-5.1) mmol/L Chloride 98 (98-107) mmol/L Carbon Dioxide 26 (21-32) mmol/L Anion Gap 6 (3-11) BUN 25 H (6-23) mg/dl Creatinine 0.81 (0.6-1.2) mg/dl Est Cr Clr Drug Dosing 51.5 ml/min Est GFR ( Amer) 77.3 ml/min Est GFR (Non-Af Amer) 66.7 ml/min BUN/Creatinine Ratio 30.9 H (10-20) Glucose 153 H (70-99(Fasting)) mg/dl POC Glucose 145 H (70-99) mg/dl Calcium 8.7 (8.5-10.1) mg/dl Phosphorus 4.1 (2.5-4.9) mg/dl Magnesium 1.5 L (1.7-2.4) mg/dl TSH (0.300-4.500) uIu/ml 11/07/21 11/07/21 11/07/21 Range/Units 23:36 19:46 16:19 WBC (4.8-10.8) K/uL RBC (4.2-5.4) M/uL Hgb (12.0-16.0) g/dL Hct (37-47) % MCV (80-100) fL MCH (25-34) pg MCHC (32-36) g/dL RDW Std Deviation (36.4-46.3) fL RDW Coeff of Pari (11.5-14.5) % Plt Count (130-400) K/uL MPV (7.4-10.4) fL Sodium (136-145) mmol/L Potassium (3.5-5.1) mmol/L Chloride (98-107) mmol/L Carbon Dioxide (21-32) mmol/L Anion Gap (3-11) BUN (6-23) mg/dl Creatinine (0.6-1.2) mg/dl Est Cr Clr Drug Dosing ml/min Est GFR ( Amer) ml/min Est GFR (Non-Af Amer) ml/min BUN/Creatinine Ratio (10-20) Glucose (70-99(Fasting)) mg/dl POC Glucose 185 H 164 H 164 H (70-99) mg/dl Calcium (8.5-10.1) mg/dl Phosphorus (2.5-4.9) mg/dl Magnesium (1.7-2.4) mg/dl TSH (0.300-4.500) uIu/ml PG Care Time/CCT Total # of Minutes Spent Total Time Spent with Patient: Total time spent is greater than 50% in coordination of care (as documented) at patient's floor/unit and/or counseling patient: Coding Level of Care Code 09760 Subseq Hosp Care Lvl 3 Diagnoses Arthritis of right knee M17.11 Hypertension I10 Hyperlipidemia E78.5 Diabetes mellitus, type 2 E11.9 Hypothyroidism E03.9 Hyponatremia E87.1 Chronic anemia D64.9 Hypomagnesemia E83.42
[2021-11-08] MEDS ORDERED: INSULIN GLARGINE SOLOSTAR 100 UNITS/ML 3 ML PEN SC SCH (21:00)
--- NOTE | 2021-11-09 07:23 | Discharge Summary ---
Date of Service date of discharge: November 08, 2021 date of admission: 11-07-21 Admission HPI Per Admitting Provider Amy is an 86 year old female who complains of left knee pain, presents for pre-op evaluation prior to a left total knee replacement. she complains of pain, decreased range of motion and stiffness in her left knee. Currently the patient states that the symptoms are moderate-severe and rated at 7/10. her pain is described as aching, sharp and throbbing and are aggravated by ascending stairs, daily activities, first steps while awake walking. Prior NSAIDs include Mobic and IBU. she has been treated with previous cortisone and visco injections in the past without much relief. Principal Diagnosis left knee osteoarthritis Discharge Exam Musculoskeletal left knee: NVDI, calf SNT, negative will sign. DP palpable, able to wiggle toes/ankle movement without difficulty. LASHONDA dressing clean dry and intact. Discharge Data Allergies Allergy/AdvReac Type Severity Reaction Status Date / Time No Known Allergies Allergy Verified 11/07/21 08:02 Consultations 11/07/21 19:02 Consult Hospitalist Routine Procedures Performed Operation Date: 11/07/21 09:00 Actual Procedures p Left Total Knee Arthroplasty(Left) - Zac Mendes DO Ordered Studies 11/07/21 05:00 US - OR guided needle placemen Routine Hospital Course (1) Arthritis of knee, left: Postop day 1 status post left total knee arthroplasty. PT/OT protocols. Weightbearing as tolerated. Patient states that she underwent her therapy sessions today and is progressing. They worked with her on stairs as well. DVT prophylaxis-aspirin p.o. twice daily, SCDs, HOLGER montilla. Pain management as written. DC planning-patient is planning for outpatient PT upon discharge. Patient currently undergoing repletion of magnesium and several other labs are being drawn. I have spoken to Dr. Pool. She will see the patient later this morning. She is to receive another dose of magnesium late this afternoon. If patient is remaining stable, she could possibly be discharged later this evening. Total Time Total Time Spent Total Time Spent (In Minutes): 20 Discharge Plan Discharge Items Patient Disposition: Home - Self-Care Reason For Visit: Osteoarthritis Knee Left Discharge Diagnosis: LEFT TOTAL KNEE REPLACEMENT , Hyponatremia Activity: Per Instructions section Lifting: Wait until after follow-up appointment Weightbearing: Left weightbearing Weightbearing Comment: WBAT WITH WALKER Non-emergency contact: Surgeon Call non-emergency contact if: you have any medication questions, your pain is not controlled, your temperature is above 101, your wound has increased redness, your wound has increased drainage and your wound pain has increased Follow-up/Referrals: Zac Mendes DO [Surgeon] - (Follow-up in 14 days from the day of your surgery for your first postoperative visit. Please call for an appointment if 1 has not been made for you.) Akosua Blum D.O. [Primary Care Provider] - Diet: Carb Consistent or DM2 Fluids: 1500ml (6 cups) Addtl Attending Provider Instructions: ACTIVITY RECOMMENDATIONS: SELF CARE INSTRUCTIONS AFTER TOTAL KNEE REPLACEMENT A. You may need to continue a physical therapy program after discharge from the hospital. There are several options available to you. Your doctor will assist you in selecting the best one for you. 1. An out-patient facility 2 to 3 times a week for therapy or home therapy. 2. Continue working on all exercises taught to you in the hospital. Your goals should be to increase bending of your knee to 90 degrees and beyond and to fully straighten your knee. B. You may progress at your own pace from walking with a walker or crutches to a cane; then to no assistive devices. C. Make walking a part of your daily routine. Be up as much as comfortable with rest periods throughout the day. Rest with leg elevation is very important. Use the ice wrap frequently for the first 3-4 weeks. D. There are no restrictions on activities. You may ride in a car, shop, participate in bell cleaner and all social activities. E. Wear the long elastic stockings (HOLGER hose) 20 hours a day for 2 weeks after surgery. They can be removed several times a day for laundering and for a bath. F. You may shower, no tub baths until cleared by your doctor. SPECIAL CARE INSTRUCTIONS: VERY IMPORTANT TO READ AND REVIEW A. There are a few signs you need to watch for after you are home. Call [facility] if you notice any of the followin. Increased severe knee pain. Some pain is expected especially when you exercise. 2. Increased swelling in your leg or knee; pain or swelling of the calf muscle in either lower leg. 3. Any fluid drainage from the incision. 4. Shortness of breath or chest pain. B. Please call [facility] at if you have any concerns or questions about your operation or recovery. The doctor or his nurse will return your call promptly. C. You must take antibiotics before dental work, bladder, bowel or other surgery. Your doctor will provide you with a permanent care to carry describing this precaution. IMPORTANT: * REMEMBER TO TAKE ASPIRIN, 81 MG, TWICE DAILY FOR 4 WEEKS UNLESS OTHERWISE DIRECTED. THIS IS YOUR BLOOD THINNER. * HIGH RISK PATIENTS MAY BE PRESCRIBED A STRONGER BLOOD THINNER. THIS WILL BE PROVIDED AT DISCHARGE. * CALL IF INCREASED PAIN, REDNESS, DRAINAGE OR FEVER GREATER THAT 101. * WEAR HOLGER HOSE 20 HOURS PER DAY FOR 2 WEEKS. * LASHONDA Dressing- This is a large suction dressing covering your incision. This will help pull any excess drainage from the wound and allow your incision to heal properly. You may shower with this if you can keep the unit outside of the shower. If any bleeding or leakage is noted please call your doctor's office. This will remain on your incision for 7 days and then should be removed. This can be done yourself or by the home nursing staff if applicable. The entire unit is disposable once removed. Once removed, keep incision clean and dry. If redness or drainage is noted, please call your surgeon. ONCE LASHONDA IS REMOVED, FOLLOW THESE INSTRUCTIONS: DERMABOND Prineo- This is a mesh tape dressing that is covered with glue. It should remain in place until the incision is properly healed, usually 10-14 days. This dressing is designed to naturally slough off. You may trim the excess mesh tape as it peels off. Incision may be briefly wet in a shower. Dry immediately by blotting with a clean, dry towel. Do not bath or swim until instructed by your doctor. Do not scratch, rub, or pick at the dressing. Do not apply any topical ointments or lotions until dressing is completely removed and/or instructed by your doctor. There may be a small piece of suture material at one end of your incision. Do not pull or trim this. If it is bothersome or catching on clothing, you may cover it with a band-aid. IF INCISION IS LEAKING THROUGH DRESSING, CALL THE OFFICE . FOLLOW UP VISIT: If appointment is not already scheduled: Please call [facility] to make a follow-up appointment for 2 weeks after your surgery at . Addtl Brick Kiln Burner Provider Instructions: You had a mildly low sodium level here. Please liberalize salt in your diet and limit your water intake to 1.5 L per day. Have your PCP recheck your blood work in 1 week. Pending Studies at Discharge: No Stand-Alone Forms: My [facility] [employer], Smoking Cessation Medications and DC Order Prescriptions: New aspirin 81 mg Tablet,Delayed Release (Dr/Ec) 81 mg PO BID 30 Days Qty: 60 RF: 0 polyethylene glycol 3350 [Miralax] 17 gram powder in packet 17 g PO DAILY PRN (Reason: constipation) Qty: 5 RF: 0 cefadroxil 500 mg capsule 500 mg PO BID Qty: 14 RF: 0 oxycodone 5 mg Tablet 5 mg PO Q4H MDD 6 PRN (Reason: pain) Qty: 30 RF: 0 Continued insulin glargine [Lantus Solostar U-100 Insulin] 100 unit/mL (3 mL) Insulin Pen 15 unit SUBCUT BID RF: 0 acetaminophen [Tylenol Extra Strength] 500 mg Tablet 1,000 mg PO Q8H Qty: 60 RF: 0 multivitamin Tablet 1 tab PO QAM RF: 0 simvastatin 40 mg Tablet 40 mg PO HS RF: 0 levothyroxine 100 mcg Tablet 100 mcg PO QAM RF: 0 ferrous sulfate [iron] 325 mg (65 mg iron) Tablet 325 mg PO QAM RF: 0 folic acid 1 mg Tablet 1 mg PO QAM RF: 0 propranolol 20 mg Tablet 20 mg PO BID RF: 0 ramipril 10 mg Tablet 10 mg PO BID RF: 0 Ozempic 0.25 mg or 0.5 mg(2 mg/1.5 mL) Pen Injector 0.5 mg SUBCUT WK RF: 0 Discontinued aspirin 81 mg Tablet,Delayed Release (Dr/Ec) 81 mg PO BID Qty: 60 RF: 0 Discharge Orders: Discharge Order (Routine); Ordered 11/08/21 Ordered By: Puneet Colón Admission Data Admit Date/Time: 11/07/21 18:58 Attending Provider: Zac Mendes Admit Provider: Zac Mendes Primary Care Provider: Aksoua Blum Other Providers: Charlene Pool Other Interventions: Discharge Summary Assessment (RN) Last Done: 11/08/21 16:24
== END 2021-11-08 17:09 | disposition home or self-care (01) | DRG 470 ==
LOC: ASU 07:28 → PACUINP 07:28 → 2S 16:26